=== PATIENT | female | born 1935 | race Caucasian/White ===

== ENCOUNTER 2016-09-10 00:27 | Emergency (ER) | payer MEDICARE, OTHER, SELFPAY ==
[2016-09-10 00:36] VITALS: BP 161/78
--- NOTE | 2016-09-10 02:12 | EDM.PDOC ---
ED HPI GENERAL MEDICAL PROBLEM - General Chief Complaint: Cardiovascular Problem Stated Complaint: HEART PROBLEMS Time Seen by Provider: 09/10/16 01:11 Source of Information: Reports: Patient History Limitations: Reports: No Limitations - History of Present Illness INITIAL COMMENTS - FREE TEXT/NARRATIVE: This is an 81-year-old female. Tonight around 11:30 PM she noted that she was having an irregular heart rate. She describes it more as skipping beats not palpitations. With this skipping beats and she noted some chest heaviness in the center of her chest but she was not short of breath she had no nausea and vomiting. She had no radiation of this heaviness into her arms though she said she felt so some slight pressure in her jaws. She's had no recent change in her medications. She just finished a course of Rituxan. Once she got to the ER these skipping beats and irregular heartbeat resolved. I'm not seeing anything the monitor this for showing some extra beats or skipped beats. She says she feels fine now. - Related Data Allergies Allergy/AdvReac Type Severity Reaction Status Date / Time naproxen Allergy Other Verified 04/24/15 09:39 Home Meds: Home Meds Aspirin 325 mg PO DAILY 04/24/15 [History] Furosemide [Lasix] 20 mg PO DAILY 04/24/15 [History] Losartan [Cozaar] 100 mg PO BEDTIME 04/24/15 [History] Metoprolol Succinate [Toprol XL] 25 mg PO DAILY 04/24/15 [History] Simvastatin [Zocor] 40 mg PO DAILY 04/24/15 [History] Ascorbic Acid [Vitamin C] 1,000 mg PO DAILY 09/10/16 [History] Cinnamon Bark [Cinnamon] 1,000 mg PO DAILY 09/10/16 [History] Fish Oil/[place]-3 Fatty Acids [Fish Oil 1,000 MG] 3,000 mg PO DAILY 09/10/16 [ History] Flaxseed/Omega3,6,9/Fatty Acid [Flax Seed Oil 1,300 mg Softgel] 1 tab PO DAILY 09/10/16 [History] Ibuprofen 800 mg PO TID PRN 09/10/16 [History] Magnesium Oxide [Magnesium] 400 mg PO DAILY 09/10/16 [History] Meclizine [Antivert] 1 - 2 tab PO DAILY PRN 09/10/16 [History] Ondansetron [Zofran ODT] 4 mg SL Q8H PRN 09/10/16 [History] Ubidecarenone [Co Q-10] 100 mg PO DAILY 09/10/16 [History] Past Medical History HEENT History: Reports: Other (See Below) Other HEENT History: blind in right eye Cardiovascular History: Reports: Heart Murmur, High Cholesterol, Hypertension Respiratory History: Reports: Bronchitis, Recurrent Other Respiratory History: lung cancer, bronchitis Genitourinary History: Reports: Urinary Incontinence, Other (See Below) 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 Musculoskeletal History: Reports: Back Pain, Chronic Neurological History: Reports: CVA Endocrine/Metabolic History: Reports: Other (See Below) Other Endocrine/Metabolic History: pre-diabetic Oncologic (Cancer) History: Reports: Lymphoma - Infectious Disease History Infectious Disease History: Reports: Chicken Pox - Past Surgical History GI Surgical History: Reports: Appendectomy Female Surgical History: Reports: Hysterectomy Social & Family History - Family History Family Medical History: Noncontributory Cardiac: Reports: PA Other Cardiac Family History: both parents - Tobacco Use Smoking Status *Q: Never Smoker Second Hand Smoke Exposure: No - Recreational Drug Use Recreational Drug Use: No ED ROS GENERAL - Review of Systems Review Of Systems: See Below Constitutional: Denies: Fever, Chills HEENT: Reports: No Symptoms Respiratory: Denies: Shortness of Breath, Cough Cardiovascular: Reports: Chest Pain, Lightheadedness Endocrine: Reports: No Symptoms GI/Abdominal: Denies: Abdominal Pain, Nausea, Vomiting : Reports: No Symptoms Musculoskeletal: Reports: No Symptoms Skin: Reports: No Symptoms Neurological: Reports: No Symptoms Psychiatric: Reports: No Symptoms Hematologic/Lymphatic: Reports: No Symptoms ED EXAM, GENERAL - Physical Exam Exam: See Below Exam Limited By: No Limitations General Appearance: Alert, WD/WN, No Apparent Distress Eye Exam: Bilateral Eye: Normal Inspection Ears: Normal External Exam Nose: Normal Inspection Throat/Mouth: Normal Inspection, Normal Lips, Normal Voice Head: Normocephalic Neck: Supple Respiratory/Chest: No Respiratory Distress, Lungs Clear, Normal Breath Sounds Cardiovascular: Regular Rate, Rhythm, Systolic Murmur, Other (Very faint 1 over 4 systolic ejection murmur noted) GI/Abdominal: Soft, Non-Tender Back Exam: Full Range of Motion Extremities: Normal Inspection, Normal Range of Motion, No Pedal Edema Neurological: Alert, Oriented Psychiatric: Normal Affect, Normal Mood Skin Exam: Warm, Dry EKG INTERPRETATION EKG Date: 09/10/16 Time: 12:50 EKG Interpretation Comments: She is in a normal sinus rhythm with a mild right bundle-branch block noted slight wandering baseline but no acute ST elevation or depression, she also has a mild prolonged QRS noted. But no acute changes Course - Vital Signs Last Recorded V/S: Last Vital Signs Temp 96.6 F 09/10/16 00:31 Pulse 70 09/10/16 00:31 Resp 20 09/10/16 00:31 BP 161/78 H 09/10/16 00:31 Pulse Ox 96 09/10/16 00:31 - Orders/Labs/Meds Orders: Active Orders 24 hr Category Date Time Status EKG Documentation Completion [RC] ASDIRECTED Care 09/10/16 01:23 Active Labs: Laboratory Tests 09/10/16 09/10/16 Range/Units 00:40 00:40 WBC 2.63 L (3.98-10.04) K/mm3 RBC 4.38 (3.98-5.22) M/mm3 Hgb 13.8 (11.2-15.7) gm/L Hct 41.1 (34.1-44.9) % MCV 93.8 (79.4-94.8) fl MCH 31.5 (25.6-32.2) pg MCHC 33.6 (32.2-35.5) g/dl RDW Std Deviation 43.6 (36.4-46.3) fL Plt Count 213 (182-369) K/mm3 MPV 12.3 (9.4-12.3) fl Neut % (Auto) 50.9 (34.0-71.1) % Lymph % (Auto) 21.3 (19.3-51.7) % [place] % (Auto) 17.9 H (4.7-12.5) % Eos % (Auto) 8.0 H (0.7-5.8) Baso % (Auto) 1.5 H (0.1-1.2) % Neut # (Auto) 1.34 L (1.56-6.13) K/mm3 Lymph # (Auto) 0.56 L (1.18-3.74) K/mm3 [place] # (Auto) 0.47 H (0.24-0.36) K/mm3 Eos # (Auto) 0.21 (0.04-0.36) K/mm3 Baso # (Auto) 0.04 (0.01-0.08) K/mm3 Manual Slide Review Abnormal smear Sodium 144 (136-145) mEq/L Potassium 3.4 L (3.5-5.1) mEq/L Chloride 107 (98-107) mEq/L Carbon Dioxide 30 (21-32) mEq/L Anion Gap 10.4 (5-15) BUN 11 (7-18) mg/dL Creatinine 0.8 (0.55-1.02) mg/dL Est Cr Clr Drug Dosing 42.88 mL/min Estimated GFR (MDRD) > 60 (>60) mL/min BUN/Creatinine Ratio 13.8 L (14-18) Glucose 117 H (83-115) mg/dL Calcium 9.8 (8.5-10.1) mg/dL Total Bilirubin 0.6 (0.2-1.0) mg/dL AST 21 (15-37) U/L ALT 24 (14-59) U/L Alkaline Phosphatase 95 (46-116) U/L Troponin I < 0.017 (0.00-0.056) ng/mL Total Protein 7.2 (6.4-8.2) g/dl Albumin 4.0 (3.4-5.0) g/dl Globulin 3.2 gm/dL Albumin/Globulin Ratio 1.3 (1-2) - Re-Assessments/Exams Free Text/Narrative Re-Assessment/Exam: 09/10/16 03:03 I spoke to the patient regarding her lab results. We discussed the process of skipped beats and if the recur or are associated with chest pressure or jaw pressure then she needs to return to the ER otherwise she has a cardiology appointment in 2 weeks for reevaluation of these symptoms. Departure - Departure Time of Disposition: 03:04 Disposition: Home, Self-Care 01 Condition: Good Clinical Impression: Skipped heart beats Referrals: Antoinette Canela TAX ADVISOR [Primary Care Provider] - Forms: ED Department Discharge Additional Instructions: Continue with your normal activities and medications, if these skipped beats seem to worsen or you develop severe chest pressure and jaw pressure or pain with this the skipped beats return to the ER immediately, follow up with your family provider this week for reevaluation, return to the ER as needed - My Orders Last 24 Hours: My Active Orders 09/10/16 01:23 EKG Documentation Completion [RC] ASDIRECTED - Assessment/Plan Last 24 Hours: My Active Orders 09/10/16 01:23 EKG Documentation Completion [RC] ASDIRECTED
== END 2016-09-10 03:15 | disposition home or self-care (01) ==
LOC: JD.ED 00:27
DX: R00.8 Other abnormalities of heart beat (principal); E78.00 Pure hypercholesterolemia, unspecified; I10 Essential (primary) hypertension; Z88.8 Allergy status to other drugs, medicaments and biological substances; Z79.82 Long term (current) use of aspirin; Z79.899 Other long term (current) drug therapy; Z86.73 Personal history of transient ischemic attack (TIA), and cerebral infarction without residual deficits; Z90.49 Acquired absence of other specified parts of digestive tract; Z90.710 Acquired absence of both cervix and uterus
CPT/HCPCS: 36415; 80053; 84484; 85025; 93005; 99283; 99285-25

== ENCOUNTER 2017-04-15 12:03 | Inpatient (IN) | payer MEDICARE, OTHER, MEDICAID ==
[2017-04-15] MEDS ORDERED: Lactated Ringers 1,000 ML IV ONE (12:31)
[2017-04-15] MEDS ORDERED: HYDROmorphone 0.5 MG/0.5 ML SYRINGE IVPUSH ONE ×2 (12:31→14:53)
[2017-04-15] MEDS ORDERED: Ondansetron 4 MG/2 ML SDV IVPUSH ONE (12:31)
--- NOTE | 2017-04-15 12:50 | EDM.PDOC ---
ED HPI GENERAL MEDICAL PROBLEM - General Chief Complaint: Respiratory Problem Stated Complaint: SOB/BODY ACHES Time Seen by Provider: 04/15/17 12:20 Source of Information: Reports: Patient History Limitations: Reports: No Limitations - History of Present Illness INITIAL COMMENTS - FREE TEXT/NARRATIVE: 82-year-old female presents for evaluation and treatment of shortness of breath and body aches. Patient reports that her symptoms started yesterday she is currently complaining of nausea, body aches, shortness of breath and chills. She states she has not had an elevated temperature. She is also complaining of low back pain. States that she's never had pain like this in her low back before. No vomiting or cough. Patient has a history of pulmonary lymphoma. She is currently on chemotherapy. Last round of chemotherapy was and Sunday. She also received some Neulasta on Sunday. patient sees Dr. Alejandra, oncology at [facility]. Duration: Day(s): (2) Location: Reports: Back Lower Back Pain Score (Numeric/FACES): 6 - Related Data Allergies Allergy/AdvReac Type Severity Reaction Status Date / Time naproxen Allergy Other Verified 04/15/17 12:10 Home Meds: Home Meds Furosemide [Lasix] 20 mg PO DAILY PRN 04/24/15 [History] Losartan [Cozaar] 100 mg PO BEDTIME 04/24/15 [History] Metoprolol Succinate [Toprol XL] 25 mg PO DAILY 04/24/15 [History] Simvastatin [Zocor] 20 mg PO DAILY 04/24/15 [History] Ascorbic Acid [Vitamin C] 1,000 mg PO DAILY 09/10/16 [History] Cinnamon Bark [Cinnamon] 1,000 mg PO DAILY 09/10/16 [History] Fish Oil/[place]-3 Fatty Acids [Fish Oil 1,000 MG] 4 cap PO DAILY 09/10/16 [ History] Ibuprofen 800 mg PO TID PRN 09/10/16 [History] Meclizine [Antivert] 1 - 2 tab PO DAILY PRN 09/10/16 [History] Ubidecarenone [Co Q-10] 100 mg PO DAILY 09/10/16 [History] Aspirin [Halfprin] 81 mg PO DAILY 04/15/17 [History] Lutein/Minerals/Vit A,C & E [Ocuvite] 1 tab PO DAILY 04/15/17 [History] Ondansetron [Zofran] 8 mg PO Q8H PRN 04/15/17 [History] Past Medical History HEENT History: Reports: Other (See Below) Other HEENT History: blind in right eye Cardiovascular History: Reports: Heart Murmur, High Cholesterol, Hypertension Respiratory History: Reports: Bronchitis, Recurrent Other Respiratory History: lung cancer, bronchitis Genitourinary History: Reports: Urinary Incontinence, Other (See Below) 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 Musculoskeletal History: Reports: Back Pain, Chronic Neurological History: Reports: CVA Endocrine/Metabolic History: Reports: Other (See Below) Other Endocrine/Metabolic History: pre-diabetic Oncologic (Cancer) History: Reports: Lymphoma - Infectious Disease History Infectious Disease History: Reports: Chicken Pox - Past Surgical History GI Surgical History: Reports: Appendectomy Female Surgical History: Reports: Hysterectomy Social & Family History - Family History Family Medical History: Noncontributory Cardiac: Reports: PA Other Cardiac Family History: both parents - Tobacco Use Smoking Status *Q: Never Smoker Second Hand Smoke Exposure: No - Recreational Drug Use Recreational Drug Use: No ED ROS GENERAL - Review of Systems Review Of Systems: See Below Constitutional: Reports: Chills, Malaise, Weakness, Fatigue. Denies: Fever Respiratory: Reports: Shortness of Breath. Denies: Cough Cardiovascular: Denies: Chest Pain GI/Abdominal: Reports: Nausea. Denies: Abdominal Pain, Vomiting Musculoskeletal: Reports: Back Pain (low back) ED EXAM, GENERAL - Physical Exam Exam: See Below Exam Limited By: No Limitations General Appearance: Alert, WD/WN, Mild Distress, Other (il appearing) Eye Exam: Bilateral Eye: Normal Inspection Ears: Normal External Exam, Normal Canal, Hearing Grossly Normal, Normal TMs Nose: Normal Inspection Throat/Mouth: Normal Inspection, Normal Lips, Normal Oropharynx, Normal Voice, No Airway Compromise Respiratory/Chest: No Respiratory Distress, Lungs Clear, Normal Breath Sounds Cardiovascular: Normal Peripheral Pulses, Regular Rate, Rhythm, Systolic Murmur (grade 3) Neurological: Alert, Normal Cognition Psychiatric: Normal Affect, Normal Mood Skin Exam: Warm, Dry, Normal Color EKG INTERPRETATION EKG Date: 04/15/17 Time: 13:05 Rhythm: NSR Rate (Beats/Min): 80 [place]: Normal P-Wave: Present QRS: RBBB ST-T: Normal QT: Normal Comparison: No Change EKG Interpretation Comments: NSR at 80 bpm. RBBB. No LAD, No LVH. No ischmic changes. No change from August, EKG. Reviewed by myself and Dr. Cardona. Course - Vital Signs Last Recorded V/S: Last Vital Signs Temp 36.3 C 04/15/17 12:10 Pulse 81 04/15/17 12:10 Resp 20 04/15/17 12:10 BP 162/75 H 04/15/17 12:10 Pulse Ox 93 L 04/15/17 12:10 - Orders/Labs/Meds Orders: Active Orders 24 hr Category Date Time Status Cardiac Monitoring [RC] . DIRECTED Care 04/15/17 12:31 Active EKG Documentation Completion [RC] ASDIRECTED Care 04/15/17 12:31 Active Oxygen Therapy [RC] ASDIRECTED Care 04/15/17 12:31 Active Ang Chest [CT] Stat Exams 04/15/17 12:31 Taken Lumbar Spine 2 or 3V [CR] Stat Exams 04/15/17 12:31 Taken CULTURE BLOOD [BC] Stat Lab 04/15/17 12:45 Received CULTURE BLOOD [BC] Stat Lab 04/15/17 13:01 Received CULTURE URINE [RM] Stat Lab 04/15/17 14:02 Received INFLUENZA A+B AG SCREEN [RM] Stat Lab 04/15/17 13:05 Ordered RESPIRATORY PANEL BY PCR [MREF] Stat Lab 04/15/17 15:37 Received Lactated Ringers [Ringers, Lactated] 1,000 ml Med 04/15/17 12:31 Active IV .BOLUS Sodium Chloride 0.9% [Normal Saline] 100 ml Med 04/15/17 13:15 Active IV ASDIRECTED Sodium Chloride 0.9% [Saline Flush] Med 04/15/17 13:10 Active 10 ml FLUSH ONETIME PRN Blood Culture x2 Reflex Set [OM.PC] Stat Oth 04/15/17 12:31 Ordered EKG 12 Lead [EK] Stat Ther 04/15/17 12:31 Ordered Medication Orders Lactated Ringer's (Ringers, Lactated) 1,000 mls @ 100 mls/hr IV .BOLUS ONE Stop: 04/15/17 22:30 Last Admin: 04/15/17 12:50 Dose: 100 mls/hr Sodium Chloride (Normal Saline) 100 mls @ 75 mls/hr IV ASDIRECTED SIERRA Last Admin: 04/15/17 13:50 Dose: 75 mls/hr Sodium Chloride (Saline Flush) 10 ml FLUSH ONETIME PRN PRN Reason: IV FLUSH Last Admin: 04/15/17 13:50 Dose: 10 ml Labs: Laboratory Tests 04/15/17 04/15/17 04/15/17 Range/Units 12:45 12:45 12:45 WBC 35.10 H (3.98-10.04) K/mm3 RBC 4.12 (3.98-5.22) M/mm3 Hgb 13.2 (11.2-15.7) gm/L Hct 39.6 (34.1-44.9) % MCV 96.1 H (79.4-94.8) fl MCH 32.0 (25.6-32.2) pg MCHC 33.3 (32.2-35.5) g/dl RDW Std Deviation 44.6 (36.4-46.3) fL Plt Count 205 (182-369) K/mm3 MPV 11.1 (9.4-12.3) fl Neutrophils % (Manual) 71 H (40-60) % Band Neutrophils % 15 H (0-10) % Lymphocytes % (Manual) 5 L (20-40) % Atypical Lymphs % 0 % Monocytes % (Manual) 5 (2-10) % Eosinophils % (Manual) 3 (0.7-5.8) % Basophils % (Manual) 1 (0.1-1.2) Differential Comment See note Toxic Granulation 1+ slight Platelet Estimate Adequate RBC Morph Comment Not Reportable Sodium 141 (136-145) mEq/L Potassium 3.3 L (3.5-5.1) mEq/L Chloride 104 (98-107) mEq/L Carbon Dioxide 29 (21-32) mEq/L Anion Gap 11.3 (5-15) BUN 9 (7-18) mg/dL Creatinine 0.7 (0.55-1.02) mg/dL Est Cr Clr Drug Dosing 48.16 mL/min Estimated GFR (MDRD) > 60 (>60) mL/min BUN/Creatinine Ratio 12.9 L (14-18) Glucose 104 (83-115) mg/dL Lactic Acid 1.9 (0.4-2.0) mmol/L Calcium 8.4 L (8.5-10.1) mg/dL Magnesium (1.8-2.4) mg/dl Total Bilirubin 0.8 (0.2-1.0) mg/dL AST 21 (15-37) U/L ALT 25 (14-59) U/L Alkaline Phosphatase 102 (46-116) U/L Troponin I < 0.017 (0.00-0.056) ng/mL C-Reactive Protein (<1.0) mg/dL NT-Pro-B Natriuret Pep (0-450) pg/mL Total Protein 6.4 (6.4-8.2) g/dl Albumin 3.6 (3.4-5.0) g/dl Globulin 2.8 gm/dL Albumin/Globulin Ratio 1.3 (1-2) Urine Color (Yellow) Urine Appearance (Clear) Urine pH (5.0-8.0) Ur Specific [place] (1.005-1.030) Urine Protein (Negative) Urine Glucose (UA) (Negative) Urine Ketones (Negative) Urine Occult Blood (Negative) Urine Nitrite (Negative) Urine Bilirubin (Negative) Urine Urobilinogen (0.2-1.0) Ur Leukocyte Esterase (Negative) Urine RBC (0-5) /hpf Urine WBC (0-5) /hpf Ur Epithelial Cells (0-5) /hpf Urine Bacteria (FEW) /hpf Urine Mucus (FEW) /hpf Mycoplasma pneumon IgM (NEGATIVE) 04/15/17 04/15/17 04/15/17 Range/Units 12:45 12:45 12:45 WBC (3.98-10.04) K/mm3 RBC (3.98-5.22) M/mm3 Hgb (11.2-15.7) gm/L Hct (34.1-44.9) % MCV (79.4-94.8) fl MCH (25.6-32.2) pg MCHC (32.2-35.5) g/dl RDW Std Deviation (36.4-46.3) fL Plt Count (182-369) K/mm3 MPV (9.4-12.3) fl Neutrophils % (Manual) (40-60) % Band Neutrophils % (0-10) % Lymphocytes % (Manual) (20-40) % Atypical Lymphs % % Monocytes % (Manual) (2-10) % Eosinophils % (Manual) (0.7-5.8) % Basophils % (Manual) (0.1-1.2) Differential Comment Toxic Granulation Platelet Estimate RBC Morph Comment Sodium (136-145) mEq/L Potassium (3.5-5.1) mEq/L Chloride (98-107) mEq/L Carbon Dioxide (21-32) mEq/L Anion Gap (5-15) BUN (7-18) mg/dL Creatinine (0.55-1.02) mg/dL Est Cr Clr Drug Dosing mL/min Estimated GFR (MDRD) (>60) mL/min BUN/Creatinine Ratio (14-18) Glucose (83-115) mg/dL Lactic Acid (0.4-2.0) mmol/L Calcium (8.5-10.1) mg/dL Magnesium (1.8-2.4) mg/dl Total Bilirubin (0.2-1.0) mg/dL AST (15-37) U/L ALT (14-59) U/L Alkaline Phosphatase (46-116) U/L Troponin I (0.00-0.056) ng/mL C-Reactive Protein 1.6 H* (<1.0) mg/dL NT-Pro-B Natriuret Pep 1063 H (0-450) pg/mL Total Protein (6.4-8.2) g/dl Albumin (3.4-5.0) g/dl Globulin gm/dL Albumin/Globulin Ratio (1-2) Urine Color (Yellow) Urine Appearance (Clear) Urine pH (5.0-8.0) Ur Specific [place] (1.005-1.030) Urine Protein (Negative) Urine Glucose (UA) (Negative) Urine Ketones (Negative) Urine Occult Blood (Negative) Urine Nitrite (Negative) Urine Bilirubin (Negative) Urine Urobilinogen (0.2-1.0) Ur Leukocyte Esterase (Negative) Urine RBC (0-5) /hpf Urine WBC (0-5) /hpf Ur Epithelial Cells (0-5) /hpf Urine Bacteria (FEW) /hpf Urine Mucus (FEW) /hpf Mycoplasma pneumon IgM Negative (NEGATIVE) 04/15/17 04/15/17 Range/Units 12:45 14:02 WBC (3.98-10.04) K/mm3 RBC (3.98-5.22) M/mm3 Hgb (11.2-15.7) gm/L Hct (34.1-44.9) % MCV (79.4-94.8) fl MCH (25.6-32.2) pg MCHC (32.2-35.5) g/dl RDW Std Deviation (36.4-46.3) fL Plt Count (182-369) K/mm3 MPV (9.4-12.3) fl Neutrophils % (Manual) (40-60) % Band Neutrophils % (0-10) % Lymphocytes % (Manual) (20-40) % Atypical Lymphs % % Monocytes % (Manual) (2-10) % Eosinophils % (Manual) (0.7-5.8) % Basophils % (Manual) (0.1-1.2) Differential Comment Toxic Granulation Platelet Estimate RBC Morph Comment Sodium (136-145) mEq/L Potassium (3.5-5.1) mEq/L Chloride (98-107) mEq/L Carbon Dioxide (21-32) mEq/L Anion Gap (5-15) BUN (7-18) mg/dL Creatinine (0.55-1.02) mg/dL Est Cr Clr Drug Dosing mL/min Estimated GFR (MDRD) (>60) mL/min BUN/Creatinine Ratio (14-18) Glucose (83-115) mg/dL Lactic Acid (0.4-2.0) mmol/L Calcium (8.5-10.1) mg/dL Magnesium 1.8 (1.8-2.4) mg/dl Total Bilirubin (0.2-1.0) mg/dL AST (15-37) U/L ALT (14-59) U/L Alkaline Phosphatase (46-116) U/L Troponin I (0.00-0.056) ng/mL C-Reactive Protein (<1.0) mg/dL NT-Pro-B Natriuret Pep (0-450) pg/mL Total Protein (6.4-8.2) g/dl Albumin (3.4-5.0) g/dl Globulin gm/dL Albumin/Globulin Ratio (1-2) Urine Color Light yellow (Yellow) Urine Appearance Clear (Clear) Urine pH 7.0 (5.0-8.0) Ur Specific [place] 1.015 (1.005-1.030) Urine Protein Negative (Negative) Urine Glucose (UA) Negative (Negative) Urine Ketones Negative (Negative) Urine Occult Blood 1+ H (Negative) Urine Nitrite Negative (Negative) Urine Bilirubin Negative (Negative) Urine Urobilinogen 0.2 (0.2-1.0) Ur Leukocyte Esterase 2+ H (Negative) Urine RBC 5-10 H (0-5) /hpf Urine WBC 20-30 H (0-5) /hpf Ur Epithelial Cells 10-20 H (0-5) /hpf Urine Bacteria Few (FEW) /hpf Urine Mucus Not seen (FEW) /hpf Mycoplasma pneumon IgM (NEGATIVE) Meds: Medications Generic Name Dose Route Start Last Admin Trade Name Toy PRN Reason Stop Dose Admin Lactated Ringer's 1,000 mls @ 100 mls/hr 04/15/17 12:31 04/15/17 12:50 Ringers, Lactated IV 04/15/17 22:30 100 mls/hr .BOLUS ONE Administration Sodium Chloride 100 mls @ 75 mls/hr 04/15/17 13:15 04/15/17 13:50 Normal Saline IV 75 mls/hr ASDIRECTED SIERRA Administration Sodium Chloride 10 ml 04/15/17 13:10 04/15/17 13:50 Saline Flush FLUSH 10 ml ONETIME PRN Administration IV FLUSH Discontinued Medications Generic Name Dose Route Start Last Admin Trade Name Freq PRN Reason Stop Dose Admin Hydromorphone HCl 0.5 mg 04/15/17 12:31 04/15/17 12:49 Dilaudid IVPUSH 04/15/17 12:32 0.5 mg ONETIME ONE Administration Hydromorphone HCl 0.5 mg 04/15/17 14:53 04/15/17 14:59 Dilaudid IVPUSH 04/15/17 14:54 0.5 mg ONETIME ONE Administration Lactated Ringer's 500 mls @ 999 mls/hr 04/15/17 14:54 Ringers, Lactated IV 04/15/17 15:24 .BOLUS ONE Levofloxacin/Dextrose 500 mg/ 100 mls @ 100 mls/hr 04/15/17 14:54 03/04/18 15 :07 Premix IV 04/15/17 15:53 100 mls/hr ONETIME ONE Administration Iopamidol 100 ml 04/15/17 13:10 04/15/17 13:49 Isovue-370 (76%) IVPUSH 04/15/17 13:11 70 ml ONETIME ONE Administration Ondansetron HCl 4 mg 04/15/17 12:31 04/15/17 12:50 Zofran IVPUSH 04/15/17 12:32 4 mg ONETIME ONE Administration - Radiology Interpretation Free Text/Narrative:: CT PE study shows per vrad: No evidence of PE. Progression in nodules and air space opacities in both lungs. Lesions measures 4cm in craniocaudal dimension Lumbar spine x-ray shows no compression fractures. No metastasis appreciated. Formal radiology read pending. - Re-Assessments/Exams Free Text/Narrative Re-Assessment/Exam: 04/15/17 16:25 The patient's influenza returned negative. Respiratory panel pending. Blood and urine cultures are pending. I was able to obtain records from [facility] in [place]. Patient's white blood cell count on April 10 was 6. Patient's oxygen sats on April 13 were noted to be 96% on room air. Of note she is also on Decadron with her chemotherapy. records show she is to have 6 rounds of chemotherapy and this is the first round. She is to have chemotherapy monthly. Discussed disposition with the patient. She lives at home by herself. I do feel it would be appropriate for her to come into the hospital. Case discussed with Dr. Francois, hospitalist information security risk analyst. She agrees to the admission. She has come and seen the patient and the ER. She'll be MedSurg with telemetry. She'll be placed on droplet isolation. Departure - Departure Time of Disposition: 16:07 Disposition: Admitted As Inpatient 65 Condition: Poor Clinical Impression: Primary pulmonary lymphoma, Hypoxia, UTI (urinary tract infection), Weakness generalized - Discharge Information Referrals: Antoinette Canela, GLASS FORMING ENGINEER [Primary Care Provider] - Forms: ED Department Discharge Additional Instructions: Patient to be admitted to [facility] with telemetry under Dr. Francois. - My Orders Last 24 Hours: My Active Orders 04/15/17 12:31 Cardiac Monitoring [RC] . DIRECTED EKG Documentation Completion [RC] ASDIRECTED Oxygen Therapy [RC] ASDIRECTED Ang Chest [CT] Stat Lumbar Spine 2 or 3V [CR] Stat Lactated Ringers [Ringers, Lactated] 1,000 ml IV .BOLUS Blood Culture x2 Reflex Set [OM.PC] Stat EKG 12 Lead [EK] Stat 04/15/17 12:45 CULTURE BLOOD [BC] Stat 04/15/17 13:01 CULTURE BLOOD [BC] Stat 04/15/17 13:05 INFLUENZA A+B AG SCREEN [RM] Stat 04/15/17 13:10 Sodium Chloride 0.9% [Saline Flush] 10 ml FLUSH ONETIME PRN 04/15/17 13:15 Sodium Chloride 0.9% [Normal Saline] 100 ml IV ASDIRECTED 04/15/17 14:02 CULTURE URINE [RM] Stat 04/15/17 15:37 RESPIRATORY PANEL BY PCR [MREF] Stat - Assessment/Plan Last 24 Hours: My Active Orders 04/15/17 12:31 Cardiac Monitoring [RC] . DIRECTED EKG Documentation Completion [RC] ASDIRECTED Oxygen Therapy [RC] ASDIRECTED Ang Chest [CT] Stat Lumbar Spine 2 or 3V [CR] Stat Lactated Ringers [Ringers, Lactated] 1,000 ml IV .BOLUS Blood Culture x2 Reflex Set [OM.PC] Stat EKG 12 Lead [EK] Stat 04/15/17 12:45 CULTURE BLOOD [BC] Stat 04/15/17 13:01 CULTURE BLOOD [BC] Stat 04/15/17 13:05 INFLUENZA A+B AG SCREEN [RM] Stat 04/15/17 13:10 Sodium Chloride 0.9% [Saline Flush] 10 ml FLUSH ONETIME PRN 04/15/17 13:15 Sodium Chloride 0.9% [Normal Saline] 100 ml IV ASDIRECTED 04/15/17 14:02 CULTURE URINE [RM] Stat 04/15/17 15:37 RESPIRATORY PANEL BY PCR [MREF] Stat
[2017-04-15] MEDS ORDERED: Sodium Chloride 0.9% 10 ML Syringe FLUSH PRN (13:10)
[2017-04-15] MEDS ORDERED: Iopamidol 755 Mg/ML 100 ML Bottle IVPUSH ONE (13:10)
[2017-04-15] MEDS ORDERED: Sodium Chloride 0.9% 100 ML IV SCH (13:15)
[2017-04-15] MEDS ORDERED: Lactated Ringers 500 ML IV ONE (14:54)
[2017-04-15] MEDS ORDERED: Levofloxacin/Dextrose 5%-Water 500 MG in Premix Bag 1 BAG IV ONE (14:54)
--- NOTE | 2017-04-15 16:52 | PCM.HP ---
H&P History of Present Illness - General Date of Service: 04/15/17 Admit Problem/Dx: Admission Diagnosis/Problem Admission Diagnosis/Problem Hypoxia Source of Information: Patient, Provider History Limitations: Reports: No Limitations - History of Present Illness Initial Comments - Free Text/Narative: 82 year female was in her usual state of health until CTX toward the end of March. This was followed by [facility] on Thursday, April 13, 2017. She received 6 mg, the WBCs were 6000. On repeat in the ED, her WBCs are >30,000. Since that time, she has experienced generalized weakness and body aches. The patient has fatigue, SOB, nausea as well as chills but no fever. She is scheduled for 6 rounds of CTX, once a month. A CT of the thorax revealed an increase in size of a lymph node from 1.6 to 2.5 cm. The patient has a diagnosis of lymphoma, unspecified. There is apparently no disease known at this time below the diaphragm. Onset of Symptoms: Reports: Sudden Symptom Onset Date: 04/14/17 Duration of Symptoms: Reports: Day(s):, Getting Worse Location: Reports: Generalized Improves with: Reports: Medication Worsens with: Reports: None Associated Symptoms: Reports: Fever/Chills, Loss of Appetite, Malaise, Nausea/ Vomiting, Weakness Lower Back Pain Score (Numeric/FACES): 6 Headache Pain Score (Numeric/FACES): 5 - Related Data Allergies/Adverse Reactions: Allergies Allergy/AdvReac Type Severity Reaction Status Date / Time naproxen Allergy Rash Verified 04/15/17 18:18 Home Medications: Home Meds Furosemide [Lasix] 20 mg PO DAILY PRN 04/24/15 [History] Losartan [Cozaar] 100 mg PO BEDTIME 04/24/15 [History] Metoprolol Succinate [Toprol XL] 25 mg PO BEDTIME 04/24/15 [History] Simvastatin [Zocor] 40 mg PO BEDTIME 04/24/15 [History] Cinnamon Bark [Cinnamon] 1,000 mg PO DAILY 09/10/16 [History] Fish Oil/Admire-3 Fatty Acids [Fish Oil 1,000 MG] 4 gram PO DAILY 09/10/16 [ History] Ibuprofen 800 mg PO TID PRN 09/10/16 [History] Meclizine [Antivert] 25 - 50 mg PO DAILY PRN 09/10/16 [History] Ubidecarenone [Co Q-10] 100 mg PO DAILY 09/10/16 [History] Acetaminophen [Tylenol] 325 mg PO DAILY 04/15/17 [History] Lutein/Minerals/Vit A,C & E [Ocuvite] 1 tab PO DAILY 04/15/17 [History] Ondansetron [Zofran] 8 mg PO TID PRN 04/15/17 [History] Past Medical History HEENT History: Reports: Other (See Below) Other HEENT History: blind in right eye Cardiovascular History: Reports: Heart Murmur, High Cholesterol, Hypertension Respiratory History: Reports: Bronchitis, Recurrent Other Respiratory History: lung cancer, bronchitis Genitourinary History: Reports: Urinary Incontinence, Other (See Below) 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 Musculoskeletal History: Reports: Back Pain, Chronic Neurological History: Reports: CVA Endocrine/Metabolic History: Reports: Other (See Below) Other Endocrine/Metabolic History: pre-diabetic Oncologic (Cancer) History: Reports: Lymphoma - Infectious Disease History Infectious Disease History: Reports: Chicken Pox - Past Surgical History GI Surgical History: Reports: Appendectomy Female Surgical History: Reports: Hysterectomy Social & Family History - Family History Family Medical History: Noncontributory Cardiac: Reports: [place] Other Cardiac Family History: both parents - Tobacco Use Smoking Status *Q: Never Smoker Second Hand Smoke Exposure: No - Recreational Drug Use Recreational Drug Use: No H&P Review of Systems - Review of Systems: Review Of Systems: See Below General: Reports: Malaise, Weakness, Fatigue, Decreased Appetite HEENT: Reports: No Symptoms Pulmonary: Reports: Shortness of Breath Cardiovascular: Reports: No Symptoms Gastrointestinal: Reports: No Symptoms Genitourinary: Reports: No Symptoms Musculoskeletal: Reports: No Symptoms Skin: Reports: No Symptoms Psychiatric: Reports: Depression Neurological: Reports: No Symptoms Hematologic/Lymphatic: Reports: No Symptoms Immunologic: Reports: No Symptoms Exam - Exam Exam: See Below - Vital Signs Vital Signs: Last Vital Signs Temp 36.3 C 04/15/17 12:10 Pulse 81 04/15/17 12:10 Resp 20 04/15/17 12:10 BP 162/75 H 04/15/17 12:10 Pulse Ox 93 L 04/15/17 12:10 Weight: 68.039 kg - Exam General: Alert, Oriented, Cooperative, Mild Distress HEENT: Conjunctiva Clear, EOMI, Nares Patent, Normal Nasal Septum, Pupils Equal , Pupils Reactive, PERRLA Neck: Supple, Trachea Midline Lungs: Normal Respiratory Effort Cardiovascular: Regular Rate, Regular Rhythm GI/Abdominal Exam: Normal Bowel Sounds, Soft, Non-Tender, No Organomegaly, No Distention (Female) Exam: Deferred Rectal (Female) Exam: Deferred Back Exam: Normal Inspection Extremities: Normal Inspection, Normal Range of Motion, Non-Tender, Slow Capillary Refill Skin: Warm Neurological: Cranial Nerves Intact Neuro Extensive - Mental Status: Alert, Oriented x3 Neuro Extensive - Motor, Sensory, Reflexes: CN II-XII Intact Psychiatric: Alert, Depressed - Patient Data Result Diagrams: 04/17/17 06:00 04/17/17 06:00 *Q Meaningful Use (ADM) - VTE *Q VTE Criteria *Q: - Stroke *Q Stroke Criteria *Q: - AMI *Q AMI Criteria *Q: Problem List Initiated/Reviewed/Updated: Yes Orders Last 24hrs: Medication Orders Lactated Ringer's (Ringers, Lactated) 1,000 mls @ 100 mls/hr IV .BOLUS ONE Stop: 04/15/17 22:30 Last Admin: 04/15/17 12:50 Dose: 100 mls/hr Sodium Chloride (Normal Saline) 100 mls @ 75 mls/hr IV ASDIRECTED [facility] Last Admin: 04/15/17 13:50 Dose: 75 mls/hr Sodium Chloride (Saline Flush) 10 ml FLUSH ONETIME PRN PRN Reason: IV FLUSH Last Admin: 04/15/17 13:50 Dose: 10 ml Assessment/Plan Comment:: Impression: AUTI S/P CTX, pulmonary lymphoma; hypoxia History of Lung CA Leukocyctosis, S/P Neulasta; baseline WBCs 6000 --->>28650. Chronic HLD HTN History of CVA Plan: Infectious work up IVF Empiric ATB, await sensitivity Home meds Daily Labs Query psych consult re: depression; start zoloft DVT/GI prophylaxis
[2017-04-15] MEDS ORDERED: HYDROmorphone 1 MG/ML Syringe IVPUSH PRN (20:05)
[2017-04-15] MEDS ORDERED: hydrALAZINE 20 MG/ML SDV IVPUSH PRN (20:14)
[2017-04-15] MEDS ORDERED: Temazepam 7.5 MG Cap PO PRN (20:17)
[2017-04-15] MEDS: Acetaminophen/HYDROcodone 325-5 MG Tab PO PRN (21:28)
[2017-04-15] MEDS: Simvastatin 40 MG Tab PO SCH (21:28)
[2017-04-15] MEDS: Metoprolol Succinate 25 MG Tab.ER PO SCH (21:29)
[2017-04-15] MEDS: Losartan 100 MG Tab PO SCH (21:29)
[2017-04-15] MEDS ORDERED: Sodium Chloride 0.9% 1,000 ML IV SCH (23:00)
[2017-04-16] MEDS: Ondansetron 4 MG/2 ML SDV IVPUSH PRN (08:57)
[2017-04-16] MEDS: Acetaminophen/HYDROcodone 325-5 MG Tab PO PRN (08:58)
[2017-04-16] MEDS ORDERED: Non-Formulary Medication 1 Each (Ubidecarenone 100 MG) PO SCH (09:00)
[2017-04-16] MEDS ORDERED: Aspirin 81 MG Tab.EC PO SCH (09:00)
[2017-04-16] MEDS ORDERED: Enoxaparin 30 MG/0.3 ML Syringe SUBCUT SCH (09:00)
[2017-04-16] MEDS ORDERED: Magnesium Sulfate/Water 2 GM in Premix Bag 1 BAG IV ONE (12:00)
--- NOTE | 2017-04-16 13:51 | CR ---
Lumbar spine: AP, lateral and coned-down lateral views centered to the lumbosacral junction were obtained. Comparison: No previous lumbar spine imaging. Diffuse diverticuli are seen within the sigmoid colon. Contrast noted within right kidney and left kidney. Severe disc space narrowing is noted at L4-L5 with minimal spondylolisthesis by several millimeters compatible with degenerative apophyseal change. Other disc spaces are maintained. Vertebral body heights are maintained. Minimal scattered endplate osteophytes are seen. Pedicles as well as visualized transverse and spinous processes are intact. Mild degenerative change is seen within the right sacroiliac joint. Impression: 1. Degenerative change as noted above most severe at L4-L5. 2. Other incidental findings. Diagnostic code #2
--- NOTE | 2017-04-16 13:51 | CT ---
CT chest Technique: Multiple axial sections were obtained through the chest. Intravenous contrast was utilized. Study has been performed as a pulmonary angiogram protocol. Comparison: Prior CT chest of 04/24/15. Findings: Pulmonary mass is noted within the left upper chest. This has slightly increased in size from previous exam. Increased size of a mass within the right middle lobe. Two adjacent nodules are seen within the right middle lobe which appear to be stable. Parenchymal density is noted within the left lower lung which remains stable. Small right-sided pleural effusion is seen with mild compressive atelectasis within the right lung base. Pulmonary arteries are well-opacified. No filling defect is seen to indicate pulmonary embolism. Mediastinum and hilar regions show no adenopathy or mass. Mild coronary artery calcification is seen. Small portion of visualized upper abdominal structures appear within normal limits. Left kidney not seen on the upper abdominal cuts. Mild degenerative change and scoliosis seen within the spine. Impression: 1. Increase in size of parenchymal masses within both lungs from prior CT exam. Findings most likely represent progression of neoplasm. 2. No findings of pulmonary embolism. 3. Small right-sided pleural effusion causing mild compressive right basilar atelectasis. 4. Other incidental findings. Diagnostic code #9 I agree with preliminary report issued by [facility] ([facility] preliminary report dictated on 04/15/17, 3:15 PM Central Time)
[2017-04-16] MEDS ORDERED: Levofloxacin/Dextrose 5%-Water 500 MG in Premix Bag 1 BAG IV SCH (14:00)
[2017-04-16] MEDS ORDERED: Scopolamine 1 MG Transdermal Patch TRDERM SCH (14:00)
--- NOTE | 2017-04-16 19:38 | PCM.PN ---
- General Info Date of Service: 04/16/17 Functional Status: Reports: Pain Controlled, Tolerating Diet, Ambulating, Urinating - Review of Systems General: Reports: Weakness, Fatigue, Malaise HEENT: Reports: No Symptoms Pulmonary: Reports: Shortness of Breath Cardiovascular: Reports: No Symptoms Gastrointestinal: Reports: No Symptoms Genitourinary: Reports: No Symptoms Musculoskeletal: Reports: No Symptoms Skin: Reports: No Symptoms Neurological: Reports: No Symptoms Psychiatric: Reports: No Symptoms - Patient Data Vitals - Most Recent: Last Vital Signs Temp 36.7 C 04/16/17 15:04 Pulse 87 04/16/17 15:04 Resp 19 04/16/17 15:04 BP 129/56 L 04/16/17 15:04 Pulse Ox 90 L 04/16/17 15:04 Weight - Most Recent: 68.039 kg I&O - Last 24 Hours: Intake & Output 04/16/17 04/16/17 04/16/17 06:59 14:59 22:59 Intake Total 650 50 750 Output Total 1450 900 Balance -800 50 -150 Lab Results Last 24 Hours: Laboratory Results - last 24 hr 04/16/17 04/16/17 04/16/17 Range/Units 06:05 06:05 06:05 WBC 43.97 H (3.98-10.04) K/mm3 RBC 4.06 (3.98-5.22) M/mm3 Hgb 12.9 (11.2-15.7) gm/L Hct 39.4 (34.1-44.9) % MCV 97.0 H (79.4-94.8) fl MCH 31.8 (25.6-32.2) pg MCHC 32.7 (32.2-35.5) g/dl RDW Std Deviation 45.4 (36.4-46.3) fL Plt Count 206 (182-369) K/mm3 MPV 12.4 H (9.4-12.3) fl Neut % (Auto) 71.6 H (34.0-71.1) % Lymph % (Auto) 1.4 L (19.3-51.7) % [place] % (Auto) 3.3 L (4.7-12.5) % Eos % (Auto) 1.4 (0.7-5.8) Baso % (Auto) 0.3 (0.1-1.2) % Neut # (Auto) 31.49 H (1.56-6.13) K/mm3 Lymph # (Auto) 0.62 L (1.18-3.74) K/mm3 [place] # (Auto) 1.43 H (0.24-0.36) K/mm3 Eos # (Auto) 0.61 H (0.04-0.36) K/mm3 Baso # (Auto) 0.14 H (0.01-0.08) K/mm3 Manual Slide Review Abnormal smear Sodium 137 (136-145) mEq/L Potassium 3.5 (3.5-5.1) mEq/L Chloride 100 (98-107) mEq/L Carbon Dioxide 28 (21-32) mEq/L Anion Gap 12.5 (5-15) BUN 6 L (7-18) mg/dL Creatinine 0.6 (0.55-1.02) mg/dL Est Cr Clr Drug Dosing 56.19 mL/min Estimated GFR (MDRD) > 60 (>60) mL/min BUN/Creatinine Ratio 10.0 L (14-18) Glucose 95 (83-115) mg/dL Lactic Acid 2.2 H (0.4-2.0) mmol/L Calcium 8.7 (8.5-10.1) mg/dL Magnesium 1.8 (1.8-2.4) mg/dl C-Reactive Protein 10.3 H* (<1.0) mg/dL Med Orders - Current: Current Medications Hydrocodone Bitart/Acetaminophen ([place] 325-5 Mg) 1 tab PO Q8H PRN PRN Reason: Pain (moderate 4-6) Last Admin: 04/16/17 08:58 Dose: 1 tab Enoxaparin Sodium (Lovenox) 40 mg SUBCUT DAILY [facility] Hydralazine HCl (Apresoline) 20 mg IVPUSH Q6H PRN PRN Reason: Hypertension Hydromorphone HCl (Dilaudid) 1 mg IVPUSH Q6H PRN PRN Reason: Pain (moderate 4-6) Levofloxacin/Dextrose 500 mg/ (Premix) 100 mls @ 100 mls/hr IV Q24H [facility] Last Admin: 04/16/17 14:13 Dose: 100 mls/hr Losartan Potassium (Cozaar) 100 mg PO BEDTIME [facility] Last Admin: 04/15/17 21:29 Dose: 100 mg Meclizine HCl (Antivert) 25 - 50 mg PO DAILY PRN PRN Reason: Dizziness Metoprolol Succinate (Toprol Xl) 25 mg PO BEDTIME [facility] Last Admin: 04/15/17 21:29 Dose: 25 mg Miscellaneous Information (Remove Patch) 0 ea TRDERM Q72H [facility] Ondansetron HCl (Zofran) 4 mg IVPUSH Q8H PRN PRN Reason: Nausea/Vomiting Last Admin: 04/16/17 08:57 Dose: 4 mg Scopolamine (Scopolamine) 1 each TRDERM Q72H [facility] Last Admin: 04/16/17 15:20 Dose: 1 each Sertraline HCl (Zoloft) 25 mg PO BEDTIME [facility] Simvastatin (Zocor) 40 mg PO BEDTIME [facility] Last Admin: 04/15/17 21:28 Dose: 40 mg Sodium Chloride (Saline Flush) 10 ml FLUSH ONETIME PRN PRN Reason: IV FLUSH Last Admin: 04/15/17 13:50 Dose: 10 ml Temazepam (Restoril) 7.5 mg PO BEDTIME PRN PRN Reason: Insomnia Discontinued Medications Aspirin (Halfprin) 81 mg PO DAILY [facility] Enoxaparin Sodium (Lovenox) 30 mg SUBCUT DAILY [facility] Last Admin: 04/16/17 08:58 Dose: 30 mg Hydromorphone HCl (Dilaudid) 0.5 mg IVPUSH ONETIME ONE Stop: 04/15/17 12:32 Last Admin: 04/15/17 12:49 Dose: 0.5 mg Hydromorphone HCl (Dilaudid) 0.5 mg IVPUSH ONETIME ONE Stop: 04/15/17 14:54 Last Admin: 04/15/17 14:59 Dose: 0.5 mg Lactated Ringer's (Ringers, Lactated) 1,000 mls @ 100 mls/hr IV .BOLUS ONE Stop: 04/15/17 22:30 Last Admin: 04/15/17 12:50 Dose: 100 mls/hr Sodium Chloride (Normal Saline) 100 mls @ 75 mls/hr IV ASDIRECTED [facility] Last Admin: 04/15/17 13:50 Dose: 75 mls/hr Lactated Ringer's (Ringers, Lactated) 500 mls @ 999 mls/hr IV .BOLUS ONE Stop: 04/15/17 15:24 Last Admin: 04/15/17 18:36 Dose: Not Given Levofloxacin/Dextrose 500 mg/ (Premix) 100 mls @ 100 mls/hr IV ONETIME ONE Stop: 04/15/17 15:53 Last Admin: 04/15/17 15:07 Dose: 100 mls/hr Sodium Chloride (Normal Saline) 1,000 mls @ 75 mls/hr IV ASDIRECTED [facility] Stop: 04/16/17 05:00 Last Admin: 04/15/17 23:05 Dose: 75 mls/hr Magnesium Sulfate 2 gm/ Premix 50 mls @ 25 mls/hr IV ONETIME ONE Stop: 04/16/17 13:59 Last Admin: 04/16/17 14:12 Dose: 25 mls/hr Iopamidol (Isovue-370 (76%)) 100 ml IVPUSH ONETIME ONE Stop: 04/15/17 13:11 Last Admin: 04/15/17 13:49 Dose: 70 ml Non-Formulary Medication (Ubidecarenone) 100 mg PO DAILY [facility] Ondansetron HCl (Zofran) 4 mg IVPUSH ONETIME ONE Stop: 04/15/17 12:32 Last Admin: 04/15/17 12:50 Dose: 4 mg - Exam Quality Assessment: Supplemental Oxygen, DVT Prophylaxis General: Alert, Oriented, Cooperative, No Acute Distress HEENT: Pupils Equal, Pupils Reactive, EOMI Neck: Supple, Trachea Midline, No JVD Lungs: Normal Respiratory Effort, Decreased Breath Sounds Cardiovascular: Regular Rate, Regular Rhythm GI/Abdominal Exam: Normal Bowel Sounds, Soft, Non-Tender, No Organomegaly, No Distention (Female) Exam: Deferred Back Exam: Normal Inspection Extremities: Normal Inspection, Normal Range of Motion, Non-Tender, No Pedal Edema Skin: Warm Neurological: No New Focal Deficit Psy/Mental Status: Alert, Depressed - Problem List Review Problem List Initiated/Reviewed/Updated: Yes - My Orders Last 24 Hours: My Active Orders 04/15/17 19:58 Meclizine [Antivert] 25 - 50 mg PO DAILY PRN 04/15/17 20:04 Ondansetron [Zofran] 4 mg IVPUSH Q8H PRN 04/15/17 20:05 HYDROmorphone [Dilaudid] 1 mg IVPUSH Q6H PRN 04/15/17 20:06 Acetaminophen/HYDROcodone [[place] 325-5 MG] 1 tab PO Q8H PRN 04/15/17 20:14 hydrALAZINE [Apresoline] 20 mg IVPUSH Q6H PRN 04/15/17 20:17 Temazepam [Restoril] 7.5 mg PO BEDTIME PRN 04/15/17 21:00 Losartan [Cozaar] 100 mg PO BEDTIME Metoprolol Succinate [Toprol XL] 25 mg PO BEDTIME Simvastatin [Zocor] 40 mg PO BEDTIME 04/16/17 09:33 Consult to Seismic Interpreter [CONS] Routine 04/16/17 10:21 Enoxaparin [Lovenox] 40 mg SUBCUT DAILY 04/16/17 12:49 Consult to Occupational Therapy [OT Evaluation and Treatment] [CONS] Routine Consult to Physical Therapy [PT Evaluation and Treatment] [CONS] Routine 04/16/17 14:00 Levofloxacin/Dextrose 5%-Water [Levaquin in D5W 500 MG/100 ML] 500 mg Premix Bag 1 bag IV Q24H Scopolamine 1 each TRDERM Q72H 04/16/17 21:00 Sertraline [Zoloft] 25 mg PO BEDTIME 04/17/17 05:00 BMP [BASIC METABOLIC PANEL,BMP] [CHEM] DAILY CBC WITH AUTO DIFF [HEME] DAILY CRP [C-REACTIVE PROTEIN] [CHEM] DAILY LACTIC ACID [CHEM] DAILY MG [MAGNESIUM] [CHEM] DAILY 04/18/17 05:00 BMP [BASIC METABOLIC PANEL,BMP] [CHEM] DAILY CBC WITH AUTO DIFF [HEME] DAILY CRP [C-REACTIVE PROTEIN] [CHEM] DAILY LACTIC ACID [CHEM] DAILY MG [MAGNESIUM] [CHEM] DAILY 04/19/17 05:00 BMP [BASIC METABOLIC PANEL,BMP] [CHEM] DAILY CBC WITH AUTO DIFF [HEME] DAILY CRP [C-REACTIVE PROTEIN] [CHEM] DAILY LACTIC ACID [CHEM] DAILY MG [MAGNESIUM] [CHEM] DAILY 04/19/17 14:00 Remove Patch 0 ea TRDERM Q72H - Plan Plan:: Impression: AUTI S/P CTX, pulmonary lymphoma; hypoxia History of reportedly Lung CA Leukocyctosis, S/P Neulasta Chronic HLD HTN History of CVA Plan: Infectious work up IVF Empiric ATB, Rocephin day 2 Home meds Daily Labs Query psych consult re: depression; start zoloft DVT/GI prophylaxis Disposition, TBD
[2017-04-16] MEDS: Losartan 100 MG Tab PO SCH (22:07)
[2017-04-16] MEDS: Metoprolol Succinate 25 MG Tab.ER PO SCH (22:07)
[2017-04-16] MEDS: Sertraline 25 MG Tab PO SCH (22:08)
[2017-04-16] MEDS: Simvastatin 40 MG Tab PO SCH (22:08)
[2017-04-17] MEDS: Enoxaparin 40 MG/0.4 ML Syringe SUBCUT SCH (08:16)
[2017-04-17] MEDS: Acetaminophen/HYDROcodone 325-5 MG Tab PO PRN (08:35)
[2017-04-17] MEDS ORDERED: HYDROmorphone 0.5 MG/0.5 ML SYRINGE IVPUSH PRN (10:44)
--- NOTE | 2017-04-17 14:25 | PCM.PN ---
- General Info Date of Service: 04/17/17 Subjective Update: Patient states that she is feeling better, "I guess I'll live." Functional Status: Reports: Pain Controlled, Tolerating Diet (requesting that diet be advanced), Ambulating, Urinating - Review of Systems General: Reports: No Symptoms HEENT: Reports: No Symptoms Pulmonary: Reports: No Symptoms Cardiovascular: Reports: No Symptoms Gastrointestinal: Reports: No Symptoms Genitourinary: Reports: No Symptoms Musculoskeletal: Reports: No Symptoms Skin: Reports: No Symptoms Neurological: Reports: No Symptoms Psychiatric: Reports: No Symptoms - Patient Data Vitals - Most Recent: Last Vital Signs Temp 37.1 C 04/17/17 08:33 Pulse 73 04/17/17 08:33 Resp 18 04/17/17 08:00 BP 131/79 04/17/17 08:33 Pulse Ox 94 L 04/17/17 08:33 Weight - Most Recent: 68.039 kg I&O - Last 24 Hours: Intake & Output 04/16/17 04/17/17 04/17/17 22:59 06:59 14:59 Intake Total 750 540 240 Output Total 900 600 Balance -150 -60 240 Lab Results Last 24 Hours: Laboratory Results - last 24 hr 04/17/17 04/17/17 04/17/17 Range/Units 06:00 06:00 06:00 WBC 54.41 H (3.98-10.04) K/mm3 RBC 3.79 L (3.98-5.22) M/mm3 Hgb 12.0 (11.2-15.7) gm/L Hct 37.5 (34.1-44.9) % MCV 98.9 H (79.4-94.8) fl MCH 31.7 (25.6-32.2) pg MCHC 32.0 L (32.2-35.5) g/dl RDW Std Deviation 46.6 H (36.4-46.3) fL Plt Count 204 (182-369) K/mm3 MPV 12.4 H (9.4-12.3) fl Neut % (Auto) Cancelled Lymph % (Auto) Cancelled [place] % (Auto) Cancelled Eos % (Auto) Cancelled Baso % (Auto) Cancelled Neut # (Auto) Cancelled Lymph # (Auto) Cancelled [place] # (Auto) Cancelled Eos # (Auto) Cancelled Baso # (Auto) Cancelled Neutrophils % (Manual) 46 (40-60) % Band Neutrophils % 43 H (0-10) % Lymphocytes % (Manual) 4 L (20-40) % Atypical Lymphs % 0 % Monocytes % (Manual) 5 (2-10) % Eosinophils % (Manual) 1 (0.7-5.8) % Basophils % (Manual) 0 L (0.1-1.2) Myelocytes % 1 Nucleated RBCs 1.0 % Differential Comment See note Manual Slide Review Cancelled Toxic Granulation 2+ moderate Platelet Estimate Adequate RBC Morph Comment Normal Sodium 139 (136-145) mEq/L Potassium 3.2 L (3.5-5.1) mEq/L Chloride 100 (98-107) mEq/L Carbon Dioxide 29 (21-32) mEq/L Anion Gap 13.2 (5-15) BUN 7 (7-18) mg/dL Creatinine 0.6 (0.55-1.02) mg/dL Est Cr Clr Drug Dosing 56.19 mL/min Estimated GFR (MDRD) > 60 (>60) mL/min BUN/Creatinine Ratio 11.7 L (14-18) Glucose 88 (83-115) mg/dL Lactic Acid 1.5 (0.4-2.0) mmol/L Calcium 8.3 L (8.5-10.1) mg/dL Magnesium 2.1 (1.8-2.4) mg/dl C-Reactive Protein 16.7 H* (<1.0) mg/dL Med Orders - Current: Current Medications Hydrocodone Bitart/Acetaminophen ([place] 325-5 Mg) 1 tab PO Q8H PRN PRN Reason: Pain (moderate 4-6) Last Admin: 04/17/17 08:35 Dose: 1 tab Cephalexin (Keflex) 500 mg PO Q12H [facility] Enoxaparin Sodium (Lovenox) 40 mg SUBCUT DAILY [facility] Last Admin: 04/17/17 08:16 Dose: 40 mg Hydralazine HCl (Apresoline) 20 mg IVPUSH Q6H PRN PRN Reason: Hypertension Hydromorphone HCl (Dilaudid) 1 mg IVPUSH Q6H PRN PRN Reason: Pain (moderate 4-6) Losartan Potassium (Cozaar) 100 mg PO BEDTIME [facility] Last Admin: 04/16/17 22:07 Dose: 100 mg Meclizine HCl (Antivert) 25 - 50 mg PO DAILY PRN PRN Reason: Dizziness Metoprolol Succinate (Toprol Xl) 25 mg PO BEDTIME [facility] Last Admin: 04/16/17 22:07 Dose: 25 mg Miscellaneous Information (Remove Patch) 0 ea TRDERM Q72H [facility] Ondansetron HCl (Zofran) 4 mg IVPUSH Q8H PRN PRN Reason: Nausea/Vomiting Last Admin: 04/16/17 08:57 Dose: 4 mg Scopolamine (Scopolamine) 1 each TRDERM Q72H [facility] Last Admin: 04/16/17 15:20 Dose: 1 each Sertraline HCl (Zoloft) 25 mg PO BEDTIME [facility] Last Admin: 04/16/17 22:08 Dose: 25 mg Simvastatin (Zocor) 40 mg PO BEDTIME [facility] Last Admin: 04/16/17 22:08 Dose: 40 mg Sodium Chloride (Saline Flush) 10 ml FLUSH ONETIME PRN PRN Reason: IV FLUSH Last Admin: 04/15/17 13:50 Dose: 10 ml Temazepam (Restoril) 7.5 mg PO BEDTIME PRN PRN Reason: Insomnia Discontinued Medications Aspirin (Halfprin) 81 mg PO DAILY [facility] Enoxaparin Sodium (Lovenox) 30 mg SUBCUT DAILY [facility] Last Admin: 04/16/17 08:58 Dose: 30 mg Hydromorphone HCl (Dilaudid) 0.5 mg IVPUSH ONETIME ONE Stop: 04/15/17 12:32 Last Admin: 04/15/17 12:49 Dose: 0.5 mg Hydromorphone HCl (Dilaudid) 0.5 mg IVPUSH ONETIME ONE Stop: 04/15/17 14:54 Last Admin: 04/15/17 14:59 Dose: 0.5 mg Hydromorphone HCl (Dilaudid) 1 mg IVPUSH Q6H PRN PRN Reason: Pain (moderate 4-6) Lactated Ringer's (Ringers, Lactated) 1,000 mls @ 100 mls/hr IV .BOLUS ONE Stop: 04/15/17 22:30 Last Admin: 04/15/17 12:50 Dose: 100 mls/hr Sodium Chloride (Normal Saline) 100 mls @ 75 mls/hr IV ASDIRECTED [facility] Last Admin: 04/15/17 13:50 Dose: 75 mls/hr Lactated Ringer's (Ringers, Lactated) 500 mls @ 999 mls/hr IV .BOLUS ONE Stop: 04/15/17 15:24 Last Admin: 04/15/17 18:36 Dose: Not Given Levofloxacin/Dextrose 500 mg/ (Premix) 100 mls @ 100 mls/hr IV ONETIME ONE Stop: 04/15/17 15:53 Last Admin: 04/15/17 15:07 Dose: 100 mls/hr Levofloxacin/Dextrose 500 mg/ (Premix) 100 mls @ 100 mls/hr IV Q24H [facility] Last Admin: 04/16/17 14:13 Dose: 100 mls/hr Sodium Chloride (Normal Saline) 1,000 mls @ 75 mls/hr IV ASDIRECTED [facility] Stop: 04/16/17 05:00 Last Admin: 04/15/17 23:05 Dose: 75 mls/hr Magnesium Sulfate 2 gm/ Premix 50 mls @ 25 mls/hr IV ONETIME ONE Stop: 04/16/17 13:59 Last Admin: 04/16/17 14:12 Dose: 25 mls/hr Ceftriaxone Sodium 2 gm/ (Dextrose/Water) 100 mls @ 200 mls/hr IV ONETIME ONE Stop: 04/17/17 11:29 Last Admin: 04/17/17 11:43 Dose: 200 mls/hr Iopamidol (Isovue-370 (76%)) 100 ml IVPUSH ONETIME ONE Stop: 04/15/17 13:11 Last Admin: 04/15/17 13:49 Dose: 70 ml Non-Formulary Medication (Ubidecarenone) 100 mg PO DAILY [facility] Ondansetron HCl (Zofran) 4 mg IVPUSH ONETIME ONE Stop: 04/15/17 12:32 Last Admin: 04/15/17 12:50 Dose: 4 mg - Exam Quality Assessment: Supplemental Oxygen, DVT Prophylaxis General: Alert, Oriented, Cooperative, No Acute Distress HEENT: Pupils Equal, Pupils Reactive, EOMI Neck: Trachea Midline, No JVD Lungs: Normal Respiratory Effort Cardiovascular: Regular Rate, Regular Rhythm GI/Abdominal Exam: Normal Bowel Sounds, Soft, Non-Tender, No Organomegaly, No Distention (Female) Exam: Deferred Back Exam: Normal Inspection Extremities: Normal Inspection Skin: Warm Neurological: No New Focal Deficit Psy/Mental Status: Alert, Anxious, Depressed - Problem List Review Problem List Initiated/Reviewed/Updated: Yes - My Orders Last 24 Hours: My Active Orders 04/16/17 14:00 Scopolamine 1 each TRDERM Q72H 04/16/17 21:00 Sertraline [Zoloft] 25 mg PO BEDTIME 04/17/17 10:44 HYDROmorphone [Dilaudid] 1 mg IVPUSH Q6H PRN 04/17/17 Lunch Soft Diet [DIET] 04/18/17 05:00 BMP [BASIC METABOLIC PANEL,BMP] [CHEM] DAILY CBC WITH AUTO DIFF [HEME] DAILY CRP [C-REACTIVE PROTEIN] [CHEM] DAILY LACTIC ACID [CHEM] DAILY MG [MAGNESIUM] [CHEM] DAILY 04/18/17 10:00 Cephalexin [Keflex] 500 mg PO Q12H 04/19/17 05:00 BMP [BASIC METABOLIC PANEL,BMP] [CHEM] DAILY CBC WITH AUTO DIFF [HEME] DAILY CRP [C-REACTIVE PROTEIN] [CHEM] DAILY LACTIC ACID [CHEM] DAILY MG [MAGNESIUM] [CHEM] DAILY 04/19/17 14:00 Remove Patch 0 ea TRDERM Q72H - Plan Plan:: Impression: AUTI S/P CTX, pulmonary lymphoma; hypoxia History of reportedly Lung CA Leukocyctosis, S/P Neulasta Chronic HLD HTN History of CVA Plan: Infectious work up IVF Empiric ATB, Rocephin day 3, start Keflex 04/18/17 Home meds Daily Labs DVT/GI prophylaxis Disposition, TBD
[2017-04-17] MEDS: Potassium Chloride 20 MEQ Tab.ER PO SCH (20:40)
[2017-04-17] MEDS: Losartan 100 MG Tab PO SCH (20:40)
[2017-04-17] MEDS: Sertraline 25 MG Tab PO SCH (20:40)
[2017-04-17] MEDS: Simvastatin 40 MG Tab PO SCH (20:41)
[2017-04-17] MEDS: Metoprolol Succinate 25 MG Tab.ER PO SCH (20:41)
[2017-04-18] MEDS: Potassium Chloride 20 MEQ Tab.ER PO SCH ×2 (09:55→21:27)
[2017-04-18] MEDS: Cephalexin 500 MG Cap PO SCH ×2 (09:56→21:26)
[2017-04-18] MEDS: Enoxaparin 40 MG/0.4 ML Syringe SUBCUT SCH (09:56)
[2017-04-18] MEDS ORDERED: Magnesium Hydroxide 400 MG/5 ML Susp 30 ML Cup PO ONE (10:10)
[2017-04-18] MEDS: Ondansetron 4 MG/2 ML SDV IVPUSH PRN (12:56)
--- NOTE | 2017-04-18 13:16 | PCM.PN ---
- General Info Date of Service: 04/18/17 Functional Status: Reports: Tolerating Diet, Ambulating, Urinating - Review of Systems General: Reports: No Symptoms HEENT: Reports: No Symptoms Pulmonary: Reports: No Symptoms Cardiovascular: Reports: No Symptoms Gastrointestinal: Reports: No Symptoms Genitourinary: Reports: No Symptoms Musculoskeletal: Reports: No Symptoms Skin: Reports: No Symptoms Neurological: Reports: No Symptoms Psychiatric: Reports: No Symptoms - Patient Data Vitals - Most Recent: Last Vital Signs Temp 36.8 C 04/17/17 20:14 Pulse 71 04/18/17 07:47 Resp 16 04/18/17 07:47 BP 143/97 H 04/18/17 07:47 Pulse Ox 90 L 04/18/17 09:03 Weight - Most Recent: 66.678 kg I&O - Last 24 Hours: Intake & Output 04/17/17 04/18/17 04/18/17 22:59 06:59 14:59 Intake Total 1360 400 180 Output Total 700 600 Balance 660 -200 180 Lab Results Last 24 Hours: Laboratory Results - last 24 hr 04/18/17 04/18/17 04/18/17 Range/Units 06:10 06:10 06:10 WBC 44.64 H (3.98-10.04) K/mm3 RBC 3.64 L (3.98-5.22) M/mm3 Hgb 11.7 (11.2-15.7) gm/L Hct 36.1 (34.1-44.9) % MCV 99.2 H (79.4-94.8) fl MCH 32.1 (25.6-32.2) pg MCHC 32.4 (32.2-35.5) g/dl RDW Std Deviation 46.4 H (36.4-46.3) fL Plt Count 177 L (182-369) K/mm3 MPV 10.9 (9.4-12.3) fl Neut % (Auto) Cancelled Lymph % (Auto) Cancelled [place] % (Auto) Cancelled Eos % (Auto) Cancelled Baso % (Auto) Cancelled Neut # (Auto) Cancelled Lymph # (Auto) Cancelled [place] # (Auto) Cancelled Eos # (Auto) Cancelled Baso # (Auto) Cancelled Neutrophils % (Manual) 43 (40-60) % Band Neutrophils % 42 H (0-10) % Lymphocytes % (Manual) 2 L (20-40) % Atypical Lymphs % 0 % Monocytes % (Manual) 4 (2-10) % Eosinophils % (Manual) 0 L (0.7-5.8) % Basophils % (Manual) 1 (0.1-1.2) Metamyelocytes % 6 Myelocytes % 2 Differential Comment See note Manual Slide Review Cancelled Toxic Granulation 2+ moderate Platelet Estimate Adequate RBC Morph Comment Normal Sodium 140 (136-145) mEq/L Potassium 3.7 (3.5-5.1) mEq/L Chloride 103 (98-107) mEq/L Carbon Dioxide 30 (21-32) mEq/L Anion Gap 10.7 (5-15) BUN 10 (7-18) mg/dL Creatinine 0.6 (0.55-1.02) mg/dL Est Cr Clr Drug Dosing 56.19 mL/min Estimated GFR (MDRD) > 60 (>60) mL/min BUN/Creatinine Ratio 16.7 (14-18) Glucose 119 H (83-115) mg/dL Lactic Acid 0.9 (0.4-2.0) mmol/L Calcium 8.2 L (8.5-10.1) mg/dL Magnesium 2.1 (1.8-2.4) mg/dl C-Reactive Protein 11.2 H* (<1.0) mg/dL Med Orders - Current: Current Medications Hydrocodone Bitart/Acetaminophen ([place] 325-5 Mg) 1 tab PO Q8H PRN PRN Reason: Pain (moderate 4-6) Last Admin: 04/17/17 08:35 Dose: 1 tab Cephalexin (Keflex) 500 mg PO Q12H [facility] Last Admin: 04/18/17 09:56 Dose: 500 mg Enoxaparin Sodium (Lovenox) 40 mg SUBCUT DAILY [facility] Last Admin: 04/18/17 09:56 Dose: 40 mg Hydralazine HCl (Apresoline) 20 mg IVPUSH Q6H PRN PRN Reason: Hypertension Hydromorphone HCl (Dilaudid) 1 mg IVPUSH Q6H PRN PRN Reason: Pain (moderate 4-6) Losartan Potassium (Cozaar) 100 mg PO BEDTIME [facility] Last Admin: 04/17/17 20:40 Dose: 100 mg Meclizine HCl (Antivert) 25 - 50 mg PO DAILY PRN PRN Reason: Dizziness Metoprolol Succinate (Toprol Xl) 25 mg PO BEDTIME [facility] Last Admin: 04/17/17 20:41 Dose: 25 mg Miscellaneous Information (Remove Patch) 0 ea TRDERM Q72H [facility] Ondansetron HCl (Zofran) 4 mg IVPUSH Q8H PRN PRN Reason: Nausea/Vomiting Last Admin: 04/18/17 12:56 Dose: 4 mg Potassium Chloride (Klor-Con M20) 40 meq PO BID [facility] Stop: 04/18/17 21:01 Last Admin: 04/18/17 09:55 Dose: 40 meq Scopolamine (Scopolamine) 1 each TRDERM Q72H [facility] Last Admin: 04/16/17 15:20 Dose: 1 each Sertraline HCl (Zoloft) 25 mg PO BEDTIME [facility] Last Admin: 04/17/17 20:40 Dose: 25 mg Simvastatin (Zocor) 40 mg PO BEDTIME [facility] Last Admin: 04/17/17 20:41 Dose: 40 mg Sodium Chloride (Saline Flush) 10 ml FLUSH ONETIME PRN PRN Reason: IV FLUSH Last Admin: 04/15/17 13:50 Dose: 10 ml Temazepam (Restoril) 7.5 mg PO BEDTIME PRN PRN Reason: Insomnia Discontinued Medications Aspirin (Halfprin) 81 mg PO DAILY [facility] Enoxaparin Sodium (Lovenox) 30 mg SUBCUT DAILY [facility] Last Admin: 04/16/17 08:58 Dose: 30 mg Hydromorphone HCl (Dilaudid) 0.5 mg IVPUSH ONETIME ONE Stop: 04/15/17 12:32 Last Admin: 04/15/17 12:49 Dose: 0.5 mg Hydromorphone HCl (Dilaudid) 0.5 mg IVPUSH ONETIME ONE Stop: 04/15/17 14:54 Last Admin: 04/15/17 14:59 Dose: 0.5 mg Hydromorphone HCl (Dilaudid) 1 mg IVPUSH Q6H PRN PRN Reason: Pain (moderate 4-6) Lactated Ringer's (Ringers, Lactated) 1,000 mls @ 100 mls/hr IV .BOLUS ONE Stop: 04/15/17 22:30 Last Admin: 04/15/17 12:50 Dose: 100 mls/hr Sodium Chloride (Normal Saline) 100 mls @ 75 mls/hr IV ASDIRECTED [facility] Last Admin: 04/15/17 13:50 Dose: 75 mls/hr Lactated Ringer's (Ringers, Lactated) 500 mls @ 999 mls/hr IV .BOLUS ONE Stop: 04/15/17 15:24 Last Admin: 04/15/17 18:36 Dose: Not Given Levofloxacin/Dextrose 500 mg/ (Premix) 100 mls @ 100 mls/hr IV ONETIME ONE Stop: 04/15/17 15:53 Last Admin: 04/15/17 15:07 Dose: 100 mls/hr Levofloxacin/Dextrose 500 mg/ (Premix) 100 mls @ 100 mls/hr IV Q24H [facility] Last Admin: 04/16/17 14:13 Dose: 100 mls/hr Sodium Chloride (Normal Saline) 1,000 mls @ 75 mls/hr IV ASDIRECTED [facility] Stop: 04/16/17 05:00 Last Admin: 04/15/17 23:05 Dose: 75 mls/hr Magnesium Sulfate 2 gm/ Premix 50 mls @ 25 mls/hr IV ONETIME ONE Stop: 04/16/17 13:59 Last Admin: 04/16/17 14:12 Dose: 25 mls/hr Ceftriaxone Sodium 2 gm/ (Dextrose/Water) 100 mls @ 200 mls/hr IV ONETIME ONE Stop: 04/17/17 11:29 Last Admin: 04/17/17 11:43 Dose: 200 mls/hr Iopamidol (Isovue-370 (76%)) 100 ml IVPUSH ONETIME ONE Stop: 04/15/17 13:11 Last Admin: 04/15/17 13:49 Dose: 70 ml Magnesium Hydroxide (Milk Of Magnesia) 30 ml PO ONETIME ONE Stop: 04/18/17 10:11 Last Admin: 04/18/17 10:24 Dose: 30 ml Non-Formulary Medication (Ubidecarenone) 100 mg PO DAILY [facility] Ondansetron HCl (Zofran) 4 mg IVPUSH ONETIME ONE Stop: 04/15/17 12:32 Last Admin: 04/15/17 12:50 Dose: 4 mg - Exam Quality Assessment: DVT Prophylaxis General: Alert, Oriented, Cooperative, No Acute Distress HEENT: Pupils Equal, Pupils Reactive, EOMI Neck: Trachea Midline, No JVD Lungs: Normal Respiratory Effort Cardiovascular: Regular Rate, Regular Rhythm GI/Abdominal Exam: Normal Bowel Sounds, Soft, Non-Tender, No Organomegaly, No Distention (Female) Exam: Deferred Extremities: Normal Inspection, Non-Tender, Normal Capillary Refill Skin: Warm, Dry, Intact Neurological: No New Focal Deficit, Normal Gait, Normal Speech Psy/Mental Status: Alert, Normal Affect, Normal Mood - Problem List Review Problem List Initiated/Reviewed/Updated: Yes - My Orders Last 24 Hours: My Active Orders 04/17/17 21:00 Potassium Chloride [Klor-Con M20] 40 meq PO BID 04/18/17 10:00 Cephalexin [Keflex] 500 mg PO Q12H 04/19/17 05:00 BMP [BASIC METABOLIC PANEL,BMP] [CHEM] DAILY CBC WITH AUTO DIFF [HEME] DAILY CRP [C-REACTIVE PROTEIN] [CHEM] DAILY LACTIC ACID [CHEM] DAILY MG [MAGNESIUM] [CHEM] DAILY 04/19/17 14:00 Remove Patch 0 ea TRDERM Q72H - Plan Plan:: Impression: *AUTI--->improved, started on Keflex S/P CTX, pulmonary lymphoma; hypoxia History of reportedly Lung CA Leukocyctosis, S/P Neulasta-->peaked decreased to 44K Chronic HLD HTN History of CVA Plan: Infectious work up--completed IVF Empiric ATB, Rocephin day 3, start Keflex 04/18/17 Home meds Daily Labs DVT/GI prophylaxis Disposition home with LOS>96 hours for slow improvement
[2017-04-18] MEDS: Simvastatin 40 MG Tab PO SCH (21:26)
[2017-04-18] MEDS: Sertraline 25 MG Tab PO SCH (21:26)
[2017-04-18] MEDS: Metoprolol Succinate 25 MG Tab.ER PO SCH (21:26)
[2017-04-18] MEDS: Losartan 100 MG Tab PO SCH (21:26)
--- NOTE | 2017-04-19 07:22 | PCM.DCSUM1 ---
Discharge Summary - Hospital Course Free Text/Narrative:: 82-year-old female presents for evaluation and treatment of shortness of breath and body aches. Patient reports that her symptoms started yesterday she is currently complaining of nausea, body aches, shortness of breath and chills. She states she has not had an elevated temperature. She is also complaining of low back pain. States that she's never had pain like this in her low back before. No vomiting or cough. Patient has a history of pulmonary lymphoma. She is currently on chemotherapy. Last round of chemotherapy was and Sunday. She also received some Neulasta on Sunday. patient sees Dr. Alejandra, oncology at [place]. - Discharge Data Discharge Date: 04/19/17 (admit date 04/15/17) Discharge Disposition: Home, W Home Health Agency 06 Condition: Good - Discharge Diagnosis/Problem(s) (1) Weakness generalized SNOMED Code(s): 61645295 ICD Code: R53.1 - WEAKNESS Status: Acute Priority: High Current Visit: Yes (2) Hypoxia SNOMED Code(s): 910686265 ICD Code: R09.02 - HYPOXEMIA Status: Acute Priority: High Current Visit : Yes (3) Primary pulmonary lymphoma SNOMED Code(s): 731432748 ICD Code: C85.99 - NON-HODGKIN LYMPHOMA, UNSP, EXTRANODAL AND SOLID ORGAN SITES Status: Acute Priority: High Current Visit: Yes (4) UTI (urinary tract infection) SNOMED Code(s): 74473448 ICD Code: N39.0 - URINARY TRACT INFECTION, SITE NOT SPECIFIED Status: Acute Priority: High Current Visit: Yes - Patient Summary/Data Operative Procedure(s) Performed: None Complications: None Consults: Consultations 04/16/17 09:33 Consult to [employer] Librarian [CONS] Routine 04/16/17 12:49 Consult to Occupational Therapy [OT Evaluation and Treatment] [CONS] Routine Consult to Physical Therapy [PT Evaluation and Treatment] [CONS] Routine Labs Pending at D/C: None Recommended Follow-up Testing/Procedures: Patient DC instructions: Follow up with PCP, SIMRAN Ross within one week of discharge Follow up with Oncologist, Dr. Pagan as scheduled Push fluids Planned Operative Procedure(s) after DC: None Hospital Course: Impression: *AUTI--->improved, started on Keflex PO S/P CTX, pulmonary lymphoma; hypoxia History of reportedly Lung CA Leukocyctosis, S/P Neulasta-->peaked decreased to 44K Chronic HLD HTN History of CVA Plan: Infectious work up--completed IVF Empiric ATB, Rocephin day 3, start Keflex 04/18/17 Home meds Daily Labs DVT/GI prophylaxis Disposition home with C LOS>96 hours for slow improvement Face to face encounter on day of discharge reveals patient will benefit from home health care nursing, STAFF ELECTRICAL ENGINEER services and PT/OT services. Due to her generalized weakness/deconditioning with cancer/chemotherapy and now AUTI she will benefit from nursing services for disease education, medication education and VS monitoring and nursing assessments, STAFF ELECTRICAL ENGINEER services for assist with ADL's/ bathing, PT/OT for strengthening and balance training. She will be home bound. She will follow up with her PCP, SIMRAN Ross within one week of discharge who will assume [facility] orders at that time. - Patient Instructions Diet: Usual Diet as Tolerated, Drink 8-10+ Glasses/Day Activity: As Tolerated Showering/Bathing: May Shower Notify Provider of: Fever, Increased Pain, Swelling and Redness, Nausea and/or Vomiting - Discharge Plan Prescriptions/Med Rec: Cephalexin [IJD: Cephalexin] 500 mg PO Q12H #10 capsule Sertraline [Zoloft] 25 mg PO BEDTIME #30 tablet Home Medications: Home Meds Furosemide [Lasix] 20 mg PO DAILY PRN 04/24/15 [History] Losartan [Cozaar] 100 mg PO BEDTIME 04/24/15 [History] Metoprolol Succinate [Toprol XL] 25 mg PO BEDTIME 04/24/15 [History] Simvastatin [Zocor] 40 mg PO BEDTIME 04/24/15 [History] Cinnamon Bark [Cinnamon] 1,000 mg PO DAILY 09/10/16 [History] Fish Oil/[place]-3 Fatty Acids [Fish Oil 1,000 MG] 4 gram PO DAILY 09/10/16 [ History] Ibuprofen 800 mg PO TID PRN 09/10/16 [History] Meclizine [Antivert] 25 - 50 mg PO DAILY PRN 09/10/16 [History] Ubidecarenone [Co Q-10] 100 mg PO DAILY 09/10/16 [History] Acetaminophen [Tylenol] 325 mg PO DAILY 04/15/17 [History] Lutein/Minerals/Vit A,C & E [Ocuvite] 1 tab PO DAILY 04/15/17 [History] Ondansetron [Zofran] 8 mg PO TID PRN 04/15/17 [History] Cephalexin [IJD: Cephalexin] 500 mg PO Q12H #10 capsule 04/19/17 [Rx] Sertraline [Zoloft] 25 mg PO BEDTIME #30 tablet 04/19/17 [Rx] Patient Handouts: Urinary Tract Infection, Adult, Fall Prevention in the Home, [id number], Home Oxygen Use, Adult Forms: ED Department Discharge Referrals: Antoinette Canela DIRECTOR OF PRODUCT DEVELOPMENT [Primary Care Provider] - - Discharge Summary/Plan Comment DC Time >30 min.: Yes (45min) - General Info Date of Service: 04/19/17 Admission Dx/Problem (Free Text: Admission Diagnosis/Problem Admission Diagnosis/Problem Hypoxia Doing better. Strength is improved. Plans for DC home today at noon with family. Functional Status: Reports: Pain Controlled, Tolerating Diet, Ambulating, Urinating - Review of Systems General: Reports: Weakness, Fatigue, Malaise. Denies: Fever HEENT: Reports: No Symptoms Pulmonary: Reports: Shortness of Breath Cardiovascular: Reports: Dyspnea on Exertion Gastrointestinal: Reports: No Symptoms Genitourinary: Reports: No Symptoms. Denies: Dysuria, Frequency, Burning Neurological: Reports: No Symptoms - Patient Data Vitals - Most Recent: Last Vital Signs Temp 97.5 F 04/19/17 05:13 Pulse 65 04/19/17 05:13 Resp 14 04/19/17 05:13 BP 136/88 04/19/17 05:13 Pulse Ox 94 L 04/19/17 05:13 Weight - Most Recent: 147 lb 8 oz I&O - Last 24 hours: Intake & Output 04/18/17 04/19/17 04/19/17 22:59 06:59 14:59 Intake Total 1460 200 Output Total 600 900 Balance 860 -700 Lab Results - Last 24 hrs: Laboratory Results - last 24 hr 04/18/17 04/18/17 04/19/17 Range/Units 06:10 06:10 06:00 WBC 38.50 H (3.98-10.04) K/mm3 RBC 3.84 L (3.98-5.22) M/mm3 Hgb 12.0 (11.2-15.7) gm/L Hct 38.4 (34.1-44.9) % MCV 100.0 H (79.4-94.8) fl MCH 31.3 (25.6-32.2) pg MCHC 31.3 L (32.2-35.5) g/dl RDW Std Deviation 47.5 H (36.4-46.3) fL Plt Count 165 L (182-369) K/mm3 MPV 11.8 (9.4-12.3) fl Neut % (Auto) Cancelled Lymph % (Auto) Cancelled [place] % (Auto) Cancelled Eos % (Auto) Cancelled Baso % (Auto) Cancelled Neut # (Auto) Cancelled Lymph # (Auto) Cancelled [place] # (Auto) Cancelled Eos # (Auto) Cancelled Baso # (Auto) Cancelled Neutrophils % (Manual) 43 (40-60) % Band Neutrophils % 42 H (0-10) % Lymphocytes % (Manual) 2 L (20-40) % Atypical Lymphs % 0 % Monocytes % (Manual) 4 (2-10) % Eosinophils % (Manual) 0 L (0.7-5.8) % Basophils % (Manual) 1 (0.1-1.2) Metamyelocytes % 6 Myelocytes % 2 Differential Comment See note Manual Slide Review Cancelled Toxic Granulation 2+ moderate Platelet Estimate Adequate RBC Morph Comment Normal Sodium 140 (136-145) mEq/L Potassium 3.7 (3.5-5.1) mEq/L Chloride 103 (98-107) mEq/L Carbon Dioxide 30 (21-32) mEq/L Anion Gap 10.7 (5-15) BUN 10 (7-18) mg/dL Creatinine 0.6 (0.55-1.02) mg/dL Est Cr Clr Drug Dosing 56.19 mL/min Estimated GFR (MDRD) > 60 (>60) mL/min BUN/Creatinine Ratio 16.7 (14-18) Glucose 119 H (83-115) mg/dL Calcium 8.2 L (8.5-10.1) mg/dL Magnesium 2.1 (1.8-2.4) mg/dl C-Reactive Protein 11.2 H* (<1.0) mg/dL Med Orders - Current: Current Medications Hydrocodone Bitart/Acetaminophen ([facility] 325-5 Mg) 1 tab PO Q8H PRN PRN Reason: Pain (moderate 4-6) Last Admin: 04/17/17 08:35 Dose: 1 tab Cephalexin (Keflex) 500 mg PO Q12H [facility] Last Admin: 04/18/17 21:26 Dose: 500 mg Enoxaparin Sodium (Lovenox) 40 mg SUBCUT DAILY [facility] Last Admin: 04/18/17 09:56 Dose: 40 mg Hydralazine HCl (Apresoline) 20 mg IVPUSH Q6H PRN PRN Reason: Hypertension Hydromorphone HCl (Dilaudid) 1 mg IVPUSH Q6H PRN PRN Reason: Pain (moderate 4-6) Losartan Potassium (Cozaar) 100 mg PO BEDTIME [facility] Last Admin: 04/18/17 21:26 Dose: 100 mg Meclizine HCl (Antivert) 25 - 50 mg PO DAILY PRN PRN Reason: Dizziness Metoprolol Succinate (Toprol Xl) 25 mg PO BEDTIME [facility] Last Admin: 04/18/17 21:26 Dose: 25 mg Miscellaneous Information (Remove Patch) 0 ea TRDERM Q72H [facility] Ondansetron HCl (Zofran) 4 mg IVPUSH Q8H PRN PRN Reason: Nausea/Vomiting Last Admin: 04/18/17 12:56 Dose: 4 mg Scopolamine (Scopolamine) 1 each TRDERM Q72H [facility] Last Admin: 04/16/17 15:20 Dose: 1 each Sertraline HCl (Zoloft) 25 mg PO BEDTIME [facility] Last Admin: 04/18/17 21:26 Dose: 25 mg Simvastatin (Zocor) 40 mg PO BEDTIME [facility] Last Admin: 04/18/17 21:26 Dose: 40 mg Sodium Chloride (Saline Flush) 10 ml FLUSH ONETIME PRN PRN Reason: IV FLUSH Last Admin: 04/15/17 13:50 Dose: 10 ml Temazepam (Restoril) 7.5 mg PO BEDTIME PRN PRN Reason: Insomnia Discontinued Medications Aspirin (Halfprin) 81 mg PO DAILY [facility] Enoxaparin Sodium (Lovenox) 30 mg SUBCUT DAILY [facility] Last Admin: 04/16/17 08:58 Dose: 30 mg Hydromorphone HCl (Dilaudid) 0.5 mg IVPUSH ONETIME ONE Stop: 04/15/17 12:32 Last Admin: 04/15/17 12:49 Dose: 0.5 mg Hydromorphone HCl (Dilaudid) 0.5 mg IVPUSH ONETIME ONE Stop: 04/15/17 14:54 Last Admin: 04/15/17 14:59 Dose: 0.5 mg Hydromorphone HCl (Dilaudid) 1 mg IVPUSH Q6H PRN PRN Reason: Pain (moderate 4-6) Lactated Ringer's (Ringers, Lactated) 1,000 mls @ 100 mls/hr IV .BOLUS ONE Stop: 04/15/17 22:30 Last Admin: 04/15/17 12:50 Dose: 100 mls/hr Sodium Chloride (Normal Saline) 100 mls @ [facility] Last Admin: 04/15/17 13:50 Dose: 75 mls/hr Lactated Ringer's (Ringers, Lactated) 500 mls @ 999 mls/hr IV .BOLUS ONE Stop: 04/15/17 15:24 Last Admin: 04/15/17 18:36 Dose: Not Given Levofloxacin/Dextrose 500 mg/ (Premix) 100 mls @ 100 mls/hr IV ONETIME ONE Stop: 04/15/17 15:53 Last Admin: 04/15/17 15:07 Dose: 100 mls/hr Levofloxacin/Dextrose 500 mg/ (Premix) 100 mls @ 100 mls/hr IV Q24H [facility] Last Admin: 04/16/17 14:13 Dose: 100 mls/hr Sodium Chloride (Normal Saline) 1,000 mls @ 75 mls/hr IV ASDIRECTED [facility] Stop: 04/16/17 05:00 Last Admin: 04/15/17 23:05 Dose: 75 mls/hr Magnesium Sulfate 2 gm/ Premix 50 mls @ 25 mls/hr IV ONETIME ONE Stop: 04/16/17 13:59 Last Admin: 04/16/17 14:12 Dose: 25 mls/hr Ceftriaxone Sodium 2 gm/ (Dextrose/Water) 100 mls @ 200 mls/hr IV ONETIME ONE Stop: 04/17/17 11:29 Last Admin: 04/17/17 11:43 Dose: 200 mls/hr Iopamidol (Isovue-370 (76%)) 100 ml IVPUSH ONETIME ONE Stop: 04/15/17 13:11 Last Admin: 04/15/17 13:49 Dose: 70 ml Magnesium Hydroxide (Milk Of Magnesia) 30 ml PO ONETIME ONE Stop: 04/18/17 10:11 Last Admin: 04/18/17 10:24 Dose: 30 ml Non-Formulary Medication (Ubidecarenone) 100 mg PO DAILY [facility] Ondansetron HCl (Zofran) 4 mg IVPUSH ONETIME ONE Stop: 04/15/17 12:32 Last Admin: 04/15/17 12:50 Dose: 4 mg Potassium Chloride (Klor-Con M20) 40 meq PO BID [facility] Stop: 04/18/17 21:01 Last Admin: 04/18/17 21:27 Dose: 40 meq - Exam Quality Assessment: Reports: Supplemental Oxygen, DVT Prophylaxis General: Reports: Alert, Oriented, Cooperative, No Acute Distress HEENT: Reports: Pupils Equal, EOMI, Mucous Membr. Moist/[place] Neck: Reports: Supple Lungs: Reports: Normal Respiratory Effort, Decreased Breath Sounds Cardiovascular: Reports: Regular Rate, Regular Rhythm GI/Abdominal Exam: Normal Bowel Sounds, Soft, Non-Tender (Female) Exam: Deferred Rectal (Female) Exam: Deferred Back Exam: Reports: Normal Inspection Neurological: Reports: No New Focal Deficit Psy/Mental Status: Reports: Alert, Normal Affect, Normal Mood *Q Meaningful Use (DIS) - VTE *Q VTE Criteria *Q: - Stroke *Q Stroke Criteria *Q: - AMI *Q AMI Criteria *Q:
[2017-04-19 09:10] VITALS: BP 118/54
[2017-04-19] MEDS: Enoxaparin 40 MG/0.4 ML Syringe SUBCUT SCH (09:39)
[2017-04-19] MEDS: Cephalexin 500 MG Cap PO SCH (09:39)
== END 2017-04-19 13:23 | disposition home health service (06) | DRG 690 ==
LOC: JD.ED 12:03 → JD.MS 16:43
PROVIDERS: ADMIT Internal Medicine Cardiovascular Disease; ATTEND Internal Medicine Cardiovascular Disease
DX: N39.0 Urinary tract infection, site not specified (principal); C85.99 Non-Hodgkin lymphoma, unspecified, extranodal and solid organ sites; R09.02 Hypoxemia; R53.1 Weakness; Z85.118 Personal history of other malignant neoplasm of bronchus and lung; E78.00 Pure hypercholesterolemia, unspecified; I10 Essential (primary) hypertension; E78.5 Hyperlipidemia, unspecified; Z86.73 Personal history of transient ischemic attack (TIA), and cerebral infarction without residual deficits; H54.40 Blindness, one eye, unspecified eye; R32 Unspecified urinary incontinence; G89.29 Other chronic pain; M54.9 Dorsalgia, unspecified; Z88.8 Allergy status to other drugs, medicaments and biological substances; Z79.82 Long term (current) use of aspirin; Z79.899 Other long term (current) drug therapy
CPT/HCPCS: 36415; 71275; 72100; 80053; 81001; 83605; 83735; 83880; 84484; 85025; 86140; 86738; 87040 ×2; 87086; 87088; 87186; 87486; 87581; 87633; 87798; 87804 ×2; 87899; 93005; 96361; 96365; 96375; 96376; 99285; J1170 ×2; J1956; J2405; J7030; J7050; J7120; Q9967; 80048; 93010; 94761; 97110-GO; 97110-GP; 97116-GP; 97162-GP; 97166-GO; 97530-GO; 97535-GO; 99223; 99231; 99232; 99239; 99284; A9270-GY; J0696; J1642; J1650; J3475; J7040; J7060

== ENCOUNTER 2018-10-04 12:16 | Emergency (ER) | payer MEDICARE, OTHER, MEDICAID ==
[2018-10-04 12:34] VITALS: BP 128/59
[2018-10-04] MEDS ORDERED: Sodium Chloride 0.9% 10 ML Syringe FLUSH PRN (12:50)
[2018-10-04] MEDS ORDERED: Sodium Chloride 0.9% 1,000 ML IV SCH (13:00)
--- NOTE | 2018-10-04 13:49 | CR ---
Pelvis and left hip: AP view of the pelvis was obtained as well as AP and frog-leg lateral left hip. Mild joint space narrowing is seen within the right hip. Joint space left hip is preserved. Sacroiliac joints are within normal limits. No fracture or other bony abnormality is seen. Impression: 1. Mild degenerative change within the right hip. Osteopenia. 2. Nothing acute is seen on AP pelvis or two-view left hip exam. Diagnostic code #2
--- NOTE | 2018-10-04 13:49 | CT ---
Head CT Technique: Multiple axial sections through the brain were obtained. Intravenous contrast was not utilized. Comparison: No prior intracranial imaging is available. Findings: Ventricles along with basal cisterns and sulci over the convexities are mildly prominent. Diminished density is noted within portions of periventricular white matter and subcortical white matter compatible with small vessel ischemic demyelination change. Atrophy includes the cerebellum. Old lacunar infarcts are seen within the caudate nucleus. No evidence of intracranial hemorrhage. No midline shift or mass effect is seen. Bone window settings were reviewed which show no acute calvarial abnormality. Visualized sinuses are clear. Visualized mastoid sinuses are also clear. Impression: 1. Senescent change as noted above. 2. Nothing acute is appreciated on noncontrast head CT exam. Diagnostic code #2
--- NOTE | 2018-10-04 13:49 | CT ---
CT cervical spine Technique: Multiple axial sections were obtained from above C1 inferiorly to the bottom of T3. Reconstructed sagittal and coronal images were reviewed. Findings: Diffuse disc space narrowing is noted at C3-C4 through C6-C7. Posterior osteophytes are seen at these levels as well as anterior osteophytes. Very slight anterior wedging noted of T3. Age of this is indeterminate. Other vertebral body heights are maintained. No discrete fracture line is seen. There is some motion artifact seen within the upper cervical spine. Degenerative apophyseal change is scattered within the cervical spine. No abnormal subluxation is seen. Mild bilateral neural foraminal stenosis is noted at C3-C4. Mild bilateral neural foraminal stenosis is noted at C4-C5. Other neural foramina are felt to be fairly well patent. Diffuse degenerative change is noted within the uncovertebral joints at C3-C4 through C6-C7. Mild scoliosis is seen. Impression: 1. Mild anterior wedging of T3. Age of this is indeterminate. MRI would be needed to determine age of this finding if clinically indicated. This finding is not seen on prior MRI cervical spine study of 08/24/12. 2. Diffuse degenerative change as noted above. 3. No other acute abnormality is seen. Diagnostic code #3
[2018-10-04] MEDS ORDERED: traMADol 50 MG Tab PO ONE (14:50)
--- NOTE | 2018-10-04 14:55 | EDM.PDOC ---
ED HPI GENERAL MEDICAL PROBLEM - General Chief Complaint: General Stated Complaint: FELL YESTERDAY MULTIPLE INJURIES Time Seen by Provider: 10/04/18 12:28 Source of Information: Reports: Patient History Limitations: Reports: No Limitations - History of Present Illness INITIAL COMMENTS - FREE TEXT/NARRATIVE: The patient presents with neck pain, headache and left hip pain after a fall. Yesterday she went to her garden and picked some vegetables and when she got to her house she went up the stairs and got dizzy and fell backward and hit her head and hurt her neck. She also has pain to her left hip. She says she has dizziness at times but she has never fallen like this. She has no chest pain, abdominal pain, nausea or vomiting. Onset: Sudden Duration: Day(s): (Yesterday) Location: Reports: Head, Neck, Lower Extremity, Left (hip) Quality: Reports: Sharp Severity: Moderate Improves with: Reports: Immobilization Worsens with: Reports: Movement Context: Reports: Trauma Associated Symptoms: Reports: Headaches. 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: Reports: Other (see below) Other Treatments SILK SCREEN REPAIRER: motrin last noc and tylenol yesterday Generalized Pain Score (Numeric/FACES): 7 - Related Data Allergies Allergy/AdvReac Type Severity Reaction Status Date / Time naproxen Allergy Rash Verified 06/13/18 10:56 Home Meds: Home Meds Furosemide [Lasix] 20 mg PO DAILY PRN 04/24/15 [History] Losartan [Cozaar] 100 mg PO DAILY 04/24/15 [History] Metoprolol Succinate [Toprol XL] 25 mg PO BID 04/24/15 [History] Simvastatin [Zocor] 20 mg PO BEDTIME 04/24/15 [History] Fish Oil/[place]-3 Fatty Acids [Fish Oil 1,000 MG] 4 gram PO DAILY 09/10/16 [ History] Ibuprofen 800 mg PO TID PRN 09/10/16 [History] Meclizine [Antivert] 25 - 50 mg PO DAILY PRN 09/10/16 [History] Ubidecarenone [Co Q-10] 100 mg PO DAILY 09/10/16 [History] Acetaminophen [Tylenol] 325 mg PO DAILY 04/15/17 [History] Lutein/Minerals/Vit A,C & E [Ocuvite] 1 tab PO DAILY 04/15/17 [History] Ondansetron [Zofran] 8 mg PO TID PRN 04/15/17 [History] Sertraline [Zoloft] 25 mg PO BEDTIME #30 tablet 04/19/17 [Rx] Clopidogrel Bisulfate [Clopidogrel] 75 mg PO DAILY 05/06/18 [History] Pantoprazole [ProTONIX] 40 mg PO DAILY 05/06/18 [History] traMADol [Ultram] 50 - 100 mg PO Q6H PRN #29 tab 10/04/18 [Rx] Past Medical History HEENT History: Reports: Other (See Below) Other HEENT History: blind in right eye Cardiovascular History: Reports: Heart Murmur, High Cholesterol, Hypertension Respiratory History: Reports: Bronchitis, Recurrent Other Respiratory History: lung cancer, bronchitis Genitourinary History: Reports: Urinary Incontinence, Other (See Below) 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: Musculoskeletal History: Reports: Back Pain, Chronic Neurological History: Reports: CVA Other Neuro History: Right eye Psychiatric History: Reports: Depression Endocrine/Metabolic History: Reports: Other (See Below) Other Endocrine/Metabolic History: pre-diabetic Oncologic (Cancer) History: Reports: Lymphoma - Infectious Disease History Infectious Disease History: Reports: Chicken Pox - Past Surgical History GI Surgical History: Reports: Appendectomy Female Surgical History: Reports: Hysterectomy Social & Family History - Family History Family Medical History: Noncontributory Cardiac: Reports: [place] Other Cardiac Family History: both parents - Tobacco Use Smoking Status *Q: Never Smoker - Caffeine Use Caffeine Use: Reports: Soda Other Caffeine Use: decaff - Recreational Drug Use Recreational Drug Use: No ED ROS GENERAL - Review of Systems Review Of Systems: See Below Constitutional: Reports: No Symptoms HEENT: Reports: No Symptoms Respiratory: Reports: No Symptoms Cardiovascular: Reports: No Symptoms Endocrine: Reports: No Symptoms GI/Abdominal: Reports: No Symptoms : Reports: No Symptoms Musculoskeletal: Reports: Neck Pain Neurological: Reports: Headache ED EXAM, GENERAL - Physical Exam Exam: See Below Exam Limited By: No Limitations General Appearance: Alert, No Apparent Distress Eye Exam: Bilateral Eye: EOMI Ears: Normal External Exam Nose: Normal Inspection Head: Atraumatic, Normocephalic Neck: Tender Midline Respiratory/Chest: No Respiratory Distress, Lungs Clear, Normal Breath Sounds Cardiovascular: Regular Rate, Rhythm, No Edema, No Murmur GI/Abdominal: Soft, Non-Tender, No Organomegaly, No Mass Back Exam: Normal Inspection Extremities: Other (Pain upon palpation to the left hip) Neurological: Alert, Oriented, No Motor/Sensory Deficits EKG INTERPRETATION EKG Date: 10/04/18 Time: 13:44 Rhythm: NSR Rate (Beats/Min): 73 [place]: Normal P-Wave: Present QRS: RBBB ST-T: Normal QT: Normal Course - Vital Signs Last Recorded V/S: Last Vital Signs Temp 97.8 F 10/04/18 12:32 Pulse 77 10/04/18 12:32 Resp 20 10/04/18 12:32 BP 128/59 L 10/04/18 12:32 Pulse Ox 96 10/04/18 12:32 - Orders/Labs/Meds Orders: Active Orders 24 hr Category Date Time Status Cardiac Monitoring [RC] . DIRECTED Care 10/04/18 12:50 Active EKG Documentation Completion [RC] STAT Care 10/04/18 12:51 Active Peripheral IV Care [RC] . DIRECTED Care 10/04/18 12:51 Active Sodium Chloride 0.9% [Normal Saline] 1,000 ml Med 10/04/18 13:00 Active IV ASDIRECTED Sodium Chloride 0.9% [Saline Flush] Med 10/04/18 12:50 Active 10 ml FLUSH ASDIRECTED PRN traMADol [Ultram] Med 10/04/18 14:50 Once 50 mg PO ONETIME ONE Peripheral IV Insertion Adult [OM.PC] Stat Oth 10/04/18 12:50 Ordered Medication Orders Sodium Chloride (Normal Saline) 1,000 mls @ 125 mls/hr IV ASDIRECTED SIERRA Last Admin: 10/04/18 13:22 Dose: 125 mls/hr Sodium Chloride (Saline Flush) 10 ml FLUSH ASDIRECTED PRN PRN Reason: Keep Vein Open Last Admin: 10/04/18 13:22 Dose: 10 ml Labs: Laboratory Tests 10/04/18 10/04/18 Range/Units 13:20 13:20 WBC 7.13 (3.98-10.04) K/mm3 RBC 4.38 (3.98-5.22) M/mm3 Hgb 13.9 D (11.2-15.7) gm/L Hct 40.8 (34.1-44.9) % MCV 93.2 D (79.4-94.8) fl MCH 31.7 (25.6-32.2) pg MCHC 34.1 (32.2-35.5) g/dl RDW Std Deviation 42.7 (36.4-46.3) fL Plt Count 213 (182-369) K/mm3 MPV 11.4 (9.4-12.3) fl Neut % (Auto) 77.0 H (34.0-71.1) % Lymph % (Auto) 8.3 L (19.3-51.7) % [place] % (Auto) 10.8 (4.7-12.5) % Eos % (Auto) 3.5 (0.7-5.8) Baso % (Auto) 0.3 (0.1-1.2) % Neut # (Auto) 5.49 (1.56-6.13) K/mm3 Lymph # (Auto) 0.59 L (1.18-3.74) K/mm3 [place] # (Auto) 0.77 H (0.24-0.36) K/mm3 Eos # (Auto) 0.25 (0.04-0.36) K/mm3 Baso # (Auto) 0.02 (0.01-0.08) K/mm3 Manual Slide Review Abnormal smear Sodium 140 (136-145) mEq/L Potassium 3.9 (3.5-5.1) mEq/L Chloride 102 (98-107) mEq/L Carbon Dioxide 31 (21-32) mEq/L Anion Gap 10.9 (5-15) BUN 14 (7-18) mg/dL Creatinine 0.7 (0.55-1.02) mg/dL Est Cr Clr Drug Dosing 47.32 mL/min Estimated GFR (MDRD) > 60 (>60) mL/min BUN/Creatinine Ratio 20.0 H (14-18) Glucose 126 H (83-115) mg/dL Calcium 9.5 (8.5-10.1) mg/dL Total Bilirubin 0.6 (0.2-1.0) mg/dL AST 13 L (15-37) U/L ALT 20 (14-59) U/L Alkaline Phosphatase 94 (46-116) U/L Troponin I < 0.017 (0.00-0.056) ng/mL Total Protein 7.1 (6.4-8.2) g/dl Albumin 4.0 (3.4-5.0) g/dl Globulin 3.1 gm/dL Albumin/Globulin Ratio 1.3 (1-2) Meds: Medications Generic Name Dose Route Start Last Admin Trade Name Freq PRN Reason Stop Dose Admin Sodium Chloride 1,000 mls @ 125 mls/hr 10/04/18 13:00 10/04/18 13:22 Normal Saline IV 125 mls/hr ASDIRECTED SIERRA Administration Sodium Chloride 10 ml 10/04/18 12:50 10/04/18 13:22 Saline Flush FLUSH 10 ml ASDIRECTED PRN Administration Keep Vein Open - Re-Assessments/Exams Free Text/Narrative Re-Assessment/Exam: 10/04/18 14:56 I ordered an IV NS at 125mL/hr, EKG, labs, CT of her head and cervical spine and x-ray of her left hip. Her EKG shows a NSR with a RBBB. Her left hip x- ray shows mild degenerative change within the right hip. Osteopenia. Nothing acute is seen on AP pelvis or two-view left hip exam. The CT of her head shows senescent change. Nothing acute is appreciated on noncontrast head CT exam. The CT of her cervical spine shows mild anterior wedging of T3. Age of this is indeterminate. MRI would be needed to determine age of this finding if clinically indicated. This finding is not seen on prior MRI cervical spine study of 08/24/12/ Diffuse degenerative change. No other acute abnormality is seen. She has pain so I ordered some ultram. I will give her a prescription for more. She has more pain in her cervical spine. She can see her doctor and discuss getting an MRI of the thoracic spine. Departure - Departure Time of Disposition: 15:05 Disposition: Home, Self-Care 01 Condition: Good Clinical Impression: Dizziness Fall Qualifiers: Encounter type: initial encounter Qualified Code(s): W19.XXXA - Unspecified fall, initial encounter Cervical strain Qualifiers: Encounter type: initial encounter Qualified Code(s): S16.1XXA - Strain of muscle, fascia and tendon at neck level, initial encounter Contusion of left hip Qualifiers: Encounter type: initial encounter Qualified Code(s): S70.02XA - Contusion of left hip, initial encounter Compression fracture of T3 vertebra Qualifiers: Encounter type: initial encounter Qualified Code(s): S22.030A - Wedge compression fracture of third thoracic vertebra, initial encounter for closed fracture - Discharge Information *PRESCRIPTION DRUG MONITORING PROGRAM REVIEWED*: No *COPY OF PRESCRIPTION DRUG MONITORING REPORT IN PATIENT KERRY: No Prescriptions: traMADol [Ultram] 50 - 100 mg PO Q6H PRN #29 tab PRN Reason: Pain Referrals: Antoinette Canela, CIRCUIT BREAKER SUPERVISOR [Primary Care Provider] - 1 Week Additional Instructions: Ice the areas that hurt. Take tylenol or motrin for pain. If that does not help try the ultram. Follow up with your doctor. Please return if you are worse. - My Orders Last 24 Hours: My Active Orders 10/04/18 12:50 Cardiac Monitoring [RC] . DIRECTED Sodium Chloride 0.9% [Saline Flush] 10 ml FLUSH ASDIRECTED PRN Peripheral IV Insertion Adult [OM.PC] Stat 10/04/18 12:51 EKG Documentation Completion [RC] STAT Peripheral IV Care [RC] . DIRECTED 10/04/18 13:00 Sodium Chloride 0.9% [Normal Saline] 1,000 ml IV ASDIRECTED 10/04/18 14:50 traMADol [Ultram] 50 mg PO ONETIME ONE - Assessment/Plan Last 24 Hours: My Active Orders 10/04/18 12:50 Cardiac Monitoring [RC] . DIRECTED Sodium Chloride 0.9% [Saline Flush] 10 ml FLUSH ASDIRECTED PRN Peripheral IV Insertion Adult [OM.PC] Stat 10/04/18 12:51 EKG Documentation Completion [RC] STAT Peripheral IV Care [RC] . DIRECTED 10/04/18 13:00 Sodium Chloride 0.9% [Normal Saline] 1,000 ml IV ASDIRECTED 10/04/18 14:50 traMADol [Ultram] 50 mg PO ONETIME ONE
== END 2018-10-04 15:20 | disposition home or self-care (01) ==
LOC: JD.ED 12:16
DX: S22.039A Unspecified fracture of third thoracic vertebra, initial encounter for closed fracture (principal); S16.1XXA Strain of muscle, fascia and tendon at neck level, initial encounter; S70.02XA Contusion of left hip, initial encounter; R42 Dizziness and giddiness; F32.9 Major depressive disorder, single episode, unspecified; I10 Essential (primary) hypertension; E78.00 Pure hypercholesterolemia, unspecified; Z88.8 Allergy status to other drugs, medicaments and biological substances; Z79.899 Other long term (current) drug therapy; Z90.49 Acquired absence of other specified parts of digestive tract; Z90.710 Acquired absence of both cervix and uterus; W19.XXXA Unspecified fall, initial encounter
CPT/HCPCS: 36415; 70450; 72125; 73502; 80053; 84484; 85025; 93005; 96360; 96361; 99284; A9270; J7040; 93010

== ENCOUNTER 2019-12-07 14:18 | Emergency (ER) | payer MEDICARE, OTHER ==
[2019-12-07] MEDS ORDERED: Sodium Chloride 0.9% 10 ML Syringe FLUSH PRN (14:30)
--- NOTE | 2019-12-07 15:09 | EDM.PDOC ---
ED HPI GENERAL MEDICAL PROBLEM - General Chief Complaint: Cardiovascular Problem Stated Complaint: SLOW HEART RATE Time Seen by Provider: 12/07/19 14:25 Source of Information: Reports: Patient History Limitations: Reports: No Limitations - History of Present Illness INITIAL COMMENTS - FREE TEXT/NARRATIVE: The patient presents with a slow heart rate and not feeling well. She woke up this morning feeling this way. She checked her blood pressure and it was a little low at 99 systolic and normally it is around 120. Her heart rate is also in the 30s. 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 She says about 4 years ago she had an aortic valve replaces at [facility] in [place]. She had no problems since. She has some shortness of breath with it but no chest pain. She has no fever, chills, cough, congestion, runny nose, abdominal pain, nausea or vomiting. Onset: Gradual Duration: Hour(s): Severity: Moderate Improves with: Reports: None Worsens with: Reports: None Associated Symptoms: Reports: Shortness of Breath. Denies: Chest Pain, Cough, Fever/Chills, Headaches, Nausea/Vomiting - Related Data Allergies Allergy/AdvReac Type Severity Reaction Status Date / Time naproxen Allergy Severe Rash Verified 12/07/19 14:29 nulasta Allergy Severe Vomiting Uncoded 12/07/19 14:29 Home Meds: Home Meds Furosemide [Lasix] 20 mg PO DAILY PRN 04/24/15 [History] Losartan [Cozaar] 100 mg PO DAILY 04/24/15 [History] Metoprolol Succinate [Toprol XL] 25 mg PO BID 04/24/15 [History] Simvastatin [Zocor] 20 mg PO BEDTIME 04/24/15 [History] Fish Oil/[place]-3 Fatty Acids [Fish Oil 1,000 MG] 4 gram PO DAILY 09/10/16 [History] Ibuprofen 800 mg PO TID PRN 09/10/16 [History] Meclizine [Antivert] 25 - 50 mg PO DAILY PRN 09/10/16 [History] Ubidecarenone [Co Q-10] 100 mg PO DAILY 09/10/16 [History] Acetaminophen [Tylenol] 325 mg PO DAILY 04/15/17 [History] Lutein/Minerals/Vit A,C & E [Ocuvite] 1 tab PO DAILY 04/15/17 [History] Ondansetron [Zofran] 4 mg PO TID PRN 04/15/17 [History] Sertraline [Zoloft] 25 mg PO BEDTIME #30 tablet 04/19/17 [Rx] Pantoprazole [ProTONIX] 40 mg PO DAILY 05/06/18 [History] Alum Hydrox/Mag Hydrox/Simeth [Maalox Advanced] 5 ml PO TID PRN 10/04/18 [History] Ascorbic Acid [Vitamin C] 1,000 mg PO DAILY 10/04/18 [History] Aspirin [Halfprin] 81 mg PO DAILY 10/04/18 [History] Calcium Carbonate [Calcium] 600 mg PO DAILY 10/04/18 [History] Cinnamon Bark [Cinnamon] 500 mg PO DAILY 10/04/18 [History] Magnesium 0 mg PO DAILY PRN 10/04/18 [History] Melatonin 10 mg PO BEDTIME PRN 10/04/18 [History] traMADol [Ultram] 50 - 100 mg PO Q6H PRN #29 tab 10/04/18 [Rx] Past Medical History HEENT History: Reports: Other (See Below) Other HEENT History: blind in right eye Cardiovascular History: Reports: Heart Murmur, High Cholesterol, Hypertension Respiratory History: Reports: Bronchitis, Recurrent Other Respiratory History: lung cancer, bronchitis Genitourinary History: Reports: Urinary Incontinence, Other (See Below) 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: Musculoskeletal History: Reports: Back Pain, Chronic Neurological History: Reports: CVA Other Neuro History: Right eye Psychiatric History: Reports: Depression Endocrine/Metabolic History: Reports: Other (See Below) Other Endocrine/Metabolic History: pre-diabetic Oncologic (Cancer) History: Reports: Lymphoma - Infectious Disease History Infectious Disease History: Reports: Chicken Pox - Past Surgical History Cardiovascular Surgical History: Reports: Other (See Below) Other Cardiovascular Surgeries/Procedures: aortic valve replacement GI Surgical History: Reports: Appendectomy Female Surgical History: Reports: Hysterectomy Social & Family History - Family History Family Medical History: Noncontributory Cardiac: Reports: [place] Other Cardiac Family History: both parents - Tobacco Use Tobacco Use Status *Q: Never Tobacco User Second Hand Smoke Exposure: No - Caffeine Use Caffeine Use: Reports: None Other Caffeine Use: decaff - Recreational Drug Use Recreational Drug Use: No ED ROS GENERAL - Review of Systems Review Of Systems: See Below Constitutional: Reports: No Symptoms HEENT: Reports: No Symptoms Respiratory: Reports: Shortness of Breath Cardiovascular: Reports: Other (bradycardia). Denies: Chest Pain Endocrine: Reports: No Symptoms GI/Abdominal: Reports: No Symptoms ED EXAM, GENERAL - Physical Exam Exam: See Below Exam Limited By: No Limitations General Appearance: Alert, No Apparent Distress Ears: Normal External Exam Nose: Normal Inspection Head: Atraumatic, Normocephalic Neck: Normal Inspection Respiratory/Chest: No Respiratory Distress, Lungs Clear, Normal Breath Sounds Cardiovascular: Regular Rate, Rhythm, No Edema, No Murmur GI/Abdominal: Soft, Non-Tender, No Organomegaly, No Mass Back Exam: Normal Inspection Extremities: Normal Inspection #1 Interpretation EKG Date: 12/07/19 Time: 14:21 Rhythm: Other (2nd degree heart block type II) Rate (Beats/Min): 35 [place]: Normal P-Wave: Present QRS: Normal ST-T: Normal QT: Normal Course - Vital Signs Last Recorded V/S: Last Vital Signs Temp 96.9 F 12/07/19 14:21 Pulse 37 L 12/07/19 14:21 Resp 16 12/07/19 14:21 BP 146/58 H 12/07/19 14:21 Pulse Ox 98 12/07/19 14:21 - Orders/Labs/Meds Orders: Active Orders 24 hr Category Date Time Status Cardiac Monitoring [RC] . DIRECTED Care 12/07/19 14:30 Active EKG Documentation Completion [RC] STAT Care 12/07/19 14:30 Active Peripheral IV Care [RC] . DIRECTED Care 12/07/19 14:30 Active Chest 1V Frontal [CR] Stat Exams 12/07/19 14:30 Taken Sodium Chloride 0.9% [Saline Flush] Med 12/07/19 14:30 Active 10 ml FLUSH ASDIRECTED PRN Peripheral IV Insertion Adult [OM.PC] Stat Oth 12/07/19 14:30 Ordered Medication Orders Sodium Chloride (Saline Flush) 10 ml FLUSH ASDIRECTED PRN PRN Reason: Keep Vein Open Last Admin: 12/07/19 14:50 Dose: 10 ml Documented by: BRENT Labs: Laboratory Tests 10/25/20 10/25/20 10/25/20 Range/Units 14:30 14:30 15:17 WBC 7.51 (3.98-10.04) K/mm3 RBC 4.39 (3.98-5.22) M/mm3 Hgb 13.7 (11.2-15.7) gm/dl Hct 42.2 (34.1-44.9) % MCV 96.1 H (79.4-94.8) fl MCH 31.2 (25.6-32.2) pg MCHC 32.5 (32.2-35.5) g/dl RDW Std Deviation 44.8 (36.4-46.3) fL Plt Count 226 (182-369) K/mm3 MPV 10.9 (9.4-12.3) fl Neut % (Auto) 72.8 H (34.0-71.1) % Lymph % (Auto) 15.2 L (19.3-51.7) % [place] % (Auto) 9.1 (4.7-12.5) % Eos % (Auto) 2.3 (0.7-5.8) Baso % (Auto) 0.5 (0.1-1.2) % Neut # (Auto) 5.47 (1.56-6.13) K/mm3 Lymph # (Auto) 1.14 L (1.18-3.74) K/mm3 [place] # (Auto) 0.68 H (0.24-0.36) K/mm3 Eos # (Auto) 0.17 (0.04-0.36) K/mm3 Baso # (Auto) 0.04 (0.01-0.08) K/mm3 Sodium 136 (136-145) mEq/L Potassium 4.3 (3.5-5.1) mEq/L Chloride 99 (98-107) mEq/L Carbon Dioxide 28 (21-32) mEq/L Anion Gap 13.3 (5-15) BUN 8 (7-18) mg/dL Creatinine 0.9 (0.55-1.02) mg/dL Est Cr Clr Drug Dosing 32.83 mL/min Estimated GFR (MDRD) 60 (>60) mL/min BUN/Creatinine Ratio 8.9 L (14-18) Glucose 118 H (83-115) mg/dL Calcium 8.8 (8.5-10.1) mg/dL Total Bilirubin 0.6 (0.2-1.0) mg/dL AST 18 (15-37) U/L ALT 23 (14-59) U/L Alkaline Phosphatase 82 (46-116) U/L Troponin I < 0.017 (0.00-0.056) ng/mL Total Protein 7.1 (6.4-8.2) g/dl Albumin 3.9 (3.4-5.0) g/dl Globulin 3.2 gm/dL Albumin/Globulin Ratio 1.2 (1-2) SARS-CoV-2 RNA (GUILLERMO) Negative (NEGATIVE) Meds: Medications Generic Name Dose Route Start Last Admin Trade Name Freq PRN Reason Stop Dose Admin Sodium Chloride 10 ml 12/07/19 14:30 12/07/19 14:50 Saline Flush FLUSH 10 ml ASDIRECTED PRN Administration Keep Vein Open Discontinued Medications Generic Name Dose Route Start Last Admin Trade Name Freq PRN Reason Stop Dose Admin Atropine Sulfate 0.5 mg 12/07/19 16:20 12/07/19 16:27 Atropine IVPUSH 12/07/19 16:21 Not Given ONETIME ONE Atropine Sulfate 0.5 mg 12/07/19 16:24 12/07/19 16:26 Atropine 0.1 Mg/Ml IVPUSH 12/07/19 16:25 0.5 mg ONETIME ONE Administration Atropine Sulfate Confirm 12/07/19 16:23 12/07/19 16:27 Atropine 0.1 Mg/Ml Administered 12/07/19 16:24 Not Given Dose 1 mg .ROUTE .STK-MED ONE - Re-Assessments/Exams Free Text/Narrative Re-Assessment/Exam: 12/07/19 17:00 I ordered an IV saline lock, pacer pads were applied and I ordered labs, EKG, CX R and COVID 19 test. Her CXR looks good. Her EKG shows a second degree HB type II. Her CBC and CMP look good. Her troponin is negative. Her COVID 19 is negative. Her heart rate went down to 27 at one time. I gave her atropine 0.5mg IV and that brought her heart rate up for a short time and it went back down. Her BP is doing good with the low heart rate though.' I called [facility] in [place] and talked with Dr Ocampo the photographic equipment assembler front end drupal developer and Dr Holguin the hospitalist and they accepted the patient. The [facility] did not recommend any more atropine unless her BP drops. 12/07/19 17:03 They will probably do a pacemaker tomorrow. Departure - Departure Time of Disposition: 17:05 Disposition: DC/Tfer to [facility] Reason for Transfer *Q: Other (pacemaker) Condition: Serious Clinical Impression: Second degree heart block Referrals: Antoinette Canela, UPSCALE SECURITY OFFICER [Primary Care Provider] - Forms: ED Department Discharge Sepsis Event Note (ED) - Evaluation Sepsis Screening Result: No Definite Risk - Focused Exam Vital Signs: Vital Signs Temp Pulse Resp BP Pulse Ox 12/07/19 14:21 96.9 F 37 L 16 146/58 H 98 - My Orders Last 24 Hours: My Active Orders 12/07/19 14:30 Cardiac Monitoring [RC] . DIRECTED EKG Documentation Completion [RC] STAT Peripheral IV Care [RC] . DIRECTED Chest 1V Frontal [CR] Stat Sodium Chloride 0.9% [Saline Flush] 10 ml FLUSH ASDIRECTED PRN Peripheral IV Insertion Adult [OM.PC] Stat - Assessment/Plan Last 24 Hours: My Active Orders 12/07/19 14:30 Cardiac Monitoring [RC] . DIRECTED EKG Documentation Completion [RC] STAT Peripheral IV Care [RC] . DIRECTED Chest 1V Frontal [CR] Stat Sodium Chloride 0.9% [Saline Flush] 10 ml FLUSH ASDIRECTED PRN Peripheral IV Insertion Adult [OM.PC] Stat
[2019-12-07] MEDS ORDERED: Atropine 0.4 MG/ML SDV IVPUSH ONE (16:20)
[2019-12-07] MEDS ORDERED: Atropine 0.1 MG/ML 10 ML Syringe ONE (16:23)
[2019-12-07] MEDS ORDERED: Atropine 0.1 MG/ML 10 ML Syringe IVPUSH ONE (16:24)
[2019-12-07 18:34] VITALS: BP 135/38; PULSE 30
--- NOTE | 2019-12-11 13:20 | CR ---
PROCEDURE INFORMATION: Exam: XR Chest, 1 View Exam date and time: 12/07/2019 2:29 PM Age: 84 years old Clinical indication: Chest pain TECHNIQUE: Imaging protocol: XR of the chest Views: 1 view. COMPARISON: CT Ang Chest 04/15/2017 12:59 PM FINDINGS: Tubes, catheters and devices: Left chest port-a-cath is noted in satisfactory position. Lungs: Unremarkable. No consolidation. Pleural space: Unremarkable. No pleural effusion. No pneumothorax. Heart/Mediastinum: Unremarkable. No cardiomegaly. Bones/joints: Unremarkable. IMPRESSION: No acute findings. Thank you for allowing us to participate in the care of your patient. Dictated and Authenticated by: Jose Natarajan MD 12/07/2019 4:18 PM Central Time ([place] & [place]) [place]
== END 2019-12-07 18:15 ==
LOC: JD.ED 14:18
DX: I44.1 Atrioventricular block, second degree (principal); E78.00 Pure hypercholesterolemia, unspecified; I10 Essential (primary) hypertension; F32.9 Major depressive disorder, single episode, unspecified; Z88.6 Allergy status to analgesic agent; Z88.8 Allergy status to other drugs, medicaments and biological substances; Z86.73 Personal history of transient ischemic attack (TIA), and cerebral infarction without residual deficits; Z20.828 Contact with and (suspected) exposure to other viral communicable diseases
CPT/HCPCS: 36415; 71045; 80053; 84484; 85025; 93005; 96374; 99285; J0461; U0002; 93010; 99284

== ENCOUNTER 2021-11-24 13:02 | Emergency (ER) | payer MEDICARE, OTHER, MEDICAID ==
[2021-11-24 13:28] VITALS: BP 165/74; PULSE 79
[2021-11-24 14:31] LABS: CORONAVIRUS COVID-19 NAA NEGATIVE (NEGATIVE)
[2021-11-24 14:37] LABS: ESTIMATED GFR 87 mL/min (>60)
== END 2021-11-24 16:00 | disposition home or self-care (01) ==
LOC: JD.ED 13:02
DX: R06.02 Shortness of breath (principal); E78.00 Pure hypercholesterolemia, unspecified; I10 Essential (primary) hypertension; Z88.8 Allergy status to other drugs, medicaments and biological substances; Z79.899 Other long term (current) drug therapy; Z86.73 Personal history of transient ischemic attack (TIA), and cerebral infarction without residual deficits; Z90.49 Acquired absence of other specified parts of digestive tract; Z90.710 Acquired absence of both cervix and uterus; Z20.822 Contact with and (suspected) exposure to COVID-19
CPT/HCPCS: 0240U; 36415; 71046; 80053; 83880; 84484; 85025; 93005; 99285

== ENCOUNTER 2022-06-26 18:23 | Inpatient (IN) | payer MEDICARE, OTHER, MEDICAID ==
[2022-06-26] MEDS ORDERED: Sodium Chloride 0.9% 10 ML Syringe FLUSH PRN (18:48)
[2022-06-26 18:58] LABS: BASOPHILS ABSOLUTE AUTO 0.02 K/mm3 (0.01-0.08); BASOPHILS PERCENT AUTO 0.2 % (0.1-1.2); EOSINOPHILS ABSOLUTE AUTO 0.03 K/mm3 (0.04-0.36); EOSINOPHILS PERCENT AUTO 0.4 (0.7-5.8); HEMATOCRIT 43.2 % (34.1-44.9); HEMOGLOBIN 14.3 gm/dl (11.2-15.7); IMMATURE GRAN ABSOLUTE AUTO 0.02 K/mm3 (0.00-0.10); IMMATURE GRAN PERCENT AUTO 0.2 % (<=1.0); LYMPHOCYTES ABSOLUTE AUTO 0.39 K/mm3 (1.18-3.74); LYMPHOCYTES PERCENT AUTO 4.7 % (19.3-51.7); MEAN CORPUSCULAR HGB CONC 33.1 g/dl (32.2-35.5); MEAN CORPUSCULAR VOLUME 96.6 fl (79.4-94.8); MEAN PLATELET VOLUME 10.8 fl (9.4-12.3); MONOCYTES ABSOLUTE AUTO 0.25 K/mm3 (0.24-0.36); NEUTROPHILS ABSOLUTE AUTO 7.55 K/mm3 (1.56-6.13); NEUTROPHILS PERCENT AUTO 91.5 % (34.0-71.1); PLATELET COUNT,PLT 206 K/mm3 (182-369); RED BLOOD CELL COUNT 4.47 M/mm3 (3.98-5.22); WHITE BLOOD CELL COUNT,WBC 8.26 K/mm3 (3.98-10.04)
[2022-06-26] MEDS ORDERED: Albuterol 0.083% 2.5 MG/3 ML Neb Soln NEB ONE (18:58)
[2022-06-26 19:21] LABS: A/G RATIO 1.1 (1-2); ALBUMIN 3.9 g/dl (3.4-5.0); ANION GAP 13.7 (5-15); BILIRUBIN TOTAL 0.5 mg/dL (0.2-1.0); BUN/CREATININE RATIO 13.8 (14-18); CALCIUM 8.9 mg/dL (8.5-10.1); CREATININE 0.8 mg/dL (0.55-1.02); EST CRCL DRUG DOSING (CG) 38.44 mL/min; POTASSIUM,K 4.7 mEq/L (3.5-5.1); PROTEIN TOTAL,TP 7.5 g/dl (6.4-8.2)
[2022-06-26] MEDS ORDERED: Sodium Chloride 0.9% 10 ML Syringe FLUSH ONE (21:24)
[2022-06-26] MEDS ORDERED: Iopamidol 755 MG/ML 50 ML Bottle IVPUSH ONE (21:24)
[2022-06-26] MEDS ORDERED: Sodium Chloride 0.9% 100 ML IV SCH (21:30)
[2022-06-27] MEDS ORDERED: Albuterol 0.083% 2.5 MG/3 ML Neb Soln NEB PRN (02:11)
[2022-06-27] MEDS: Albuterol 0.083% 2.5 MG/3 ML Neb Soln NEB SCH ×2 (02:44→08:03)
[2022-06-27 06:55] LABS: HEMATOCRIT 39.1 % (34.1-44.9); HEMOGLOBIN 12.9 gm/dl (11.2-15.7); MEAN CORPUSCULAR HEMOGLOBIN 31.8 pg (25.6-32.2); MEAN CORPUSCULAR VOLUME 96.3 fl (79.4-94.8); MEAN PLATELET VOLUME 11.7 fl (9.4-12.3); PLATELET COUNT,PLT 190 K/mm3 (182-369); RED BLOOD CELL COUNT 4.06 M/mm3 (3.98-5.22); WHITE BLOOD CELL COUNT,WBC 7.89 K/mm3 (3.98-10.04)
[2022-06-27] MEDS ORDERED: Albuterol/Ipratropium 3.0-0.5 MG/3 ML Neb Soln NEB SCH (08:00)
[2022-06-27 08:06] LABS: POTASSIUM,K 3.6 mEq/L (3.5-5.1)
[2022-06-27 08:07] LABS: ANION GAP 10.6 (5-15); BUN/CREATININE RATIO 21.7 (14-18); CALCIUM 8.8 mg/dL (8.5-10.1); CREATININE 0.6 mg/dL (0.55-1.02); EST CRCL DRUG DOSING (CG) 51.26 mL/min
[2022-06-27] MEDS: Enoxaparin 40 MG/0.4 ML Syringe SUBCUT SCH (09:04)
[2022-06-27] MEDS: Aspirin 81 MG Tab.EC PO SCH (09:15)
[2022-06-27] MEDS: Doxycycline Monohydrate 100 MG Cap PO SCH ×2 (09:15→20:26)
[2022-06-27] MEDS: Metoprolol Succinate 50 MG Tab.ER PO SCH ×2 (09:16→20:26)
[2022-06-27] MEDS: Oxybutynin 5 MG Tab.ER PO SCH (09:16)
[2022-06-27] MEDS: predniSONE 20 MG Tab PO SCH (09:19)
[2022-06-27] MEDS: Albuterol/Ipratropium 3.0-0.5 MG/3 ML Neb Soln NEB SCH ×2 (14:08→20:16)
[2022-06-27] MEDS: Acetaminophen 325 MG Tab PO PRN (20:27)
[2022-06-27] MEDS ORDERED: Losartan 50 MG Tab PO SCH (21:00)
[2022-06-28] MEDS: Albuterol/Ipratropium 3.0-0.5 MG/3 ML Neb Soln NEB SCH ×3 (03:28→14:12)
[2022-06-28] MEDS: predniSONE 20 MG Tab PO SCH (07:22)
[2022-06-28] MEDS: Metoprolol Succinate 50 MG Tab.ER PO SCH (08:16)
[2022-06-28] MEDS: Doxycycline Monohydrate 100 MG Cap PO SCH (08:16)
[2022-06-28] MEDS: Oxybutynin 5 MG Tab.ER PO SCH (08:17)
[2022-06-28] MEDS: Enoxaparin 40 MG/0.4 ML Syringe SUBCUT SCH (08:17)
[2022-06-28] MEDS: Aspirin 81 MG Tab.EC PO SCH (08:17)
[2022-06-28] MEDS: Acetaminophen 325 MG Tab PO PRN (09:58)
[2022-06-28 13:22] VITALS: BP 138/60; PULSE 85
== END 2022-06-28 15:30 | disposition home or self-care (01) | DRG 189 ==
LOC: JD.ED 18:23 → JD.MS 22:17 → OBSVTOIN 06-27 08:52
PROVIDERS: ADMIT Internal Medicine; ATTEND Internal Medicine
DX: J96.01 Acute respiratory failure with hypoxia (principal); J45.901 Unspecified asthma with (acute) exacerbation; J98.09 Other diseases of bronchus, not elsewhere classified; I10 Essential (primary) hypertension; E78.5 Hyperlipidemia, unspecified; H91.90 Unspecified hearing loss, unspecified ear; J45.909 Unspecified asthma, uncomplicated; G89.29 Other chronic pain; M54.9 Dorsalgia, unspecified; F32.A Depression, unspecified; E83.42 Hypomagnesemia; Z90.89 Acquired absence of other organs; Z98.49 Cataract extraction status, unspecified eye; Z98.890 Other specified postprocedural states; Z95.0 Presence of cardiac pacemaker; Z86.73 Personal history of transient ischemic attack (TIA), and cerebral infarction without residual deficits; Z95.4 Presence of other heart-valve replacement; Z90.710 Acquired absence of both cervix and uterus; Z88.8 Allergy status to other drugs, medicaments and biological substances
CPT/HCPCS: 36415; 71275; 71275-26; 80048; 80053; 85025; 85027; 85379; 94640; 94761; 99284; 99285; A9270-GY; G0378; J1650; J3490; J7512; J7620-GY; Q9967